=== PATIENT | male | born 1965 | race Hispanic/Latino ===

== ENCOUNTER 2017-02-27 09:37 | Observation (INO) | payer MEDICAID ==
[~2017-02-27] VITALS: Ht 172.7 cm; Wt 113.1 kg
[~2017-02-27 09:37] MED LIST: HUM10VIA6 SQ; HYDR-305 PO
[2017-02-27 12:08] VITALS: BP 119/68
[2017-02-27 12:09] LABS: POTASSIUM 4.3 mmol/L (3.5-5.1)
[2017-02-27] MEDS ORDERED: AMYL1CAP63 PO (12:29)
[2017-02-27] MEDS ORDERED: ALBU6.7H IH (12:32)
[2017-02-27] MEDS ORDERED: CHOL50004 PO (12:32)
[2017-02-27] MEDS ORDERED: ICOS1CAP PO (12:32)
[2017-02-27] MEDS ORDERED: INSLAN SQ (12:32)
[2017-02-27] MEDS ORDERED: LISI-613 PO (12:32)
[2017-02-27] MEDS ORDERED: ALPR1TAB2 PO (12:32)
[2017-02-27] MEDS ORDERED: PIOG15TA66 PO (12:32)
[2017-02-27] MEDS ORDERED: CANA300T PO (12:32)
[2017-02-27] MEDS ORDERED: METF10004 PO (12:32)
[2017-02-27] MEDS ORDERED: LINA5TAB PO (12:32)
[2017-02-27] MEDS ORDERED: EXEN10PE3 SQ (12:32)
[2017-02-28] VITALS (25 sets, daily range): BP systolic 101–157; BP diastolic 59–83
[2017-02-28] MEDS ORDERED: CEFAZOLIN 2 GM/50 ML IV ONE (08:52)
[2017-02-28] MEDS ORDERED: SODIUM CHLORIDE 0.9% 1000ML 1,000 ML IV ONE (08:52)
[2017-02-28 09:20] LABS: POTASSIUM 4.7 mmol/L (3.5-5.1)
[2017-02-28] MEDS ORDERED: INSULIN HUMULIN R 100 UNIT/ML 3ML ONE ×3 (09:31→11:36)
[2017-02-28] MEDS ORDERED: INSULIN HUMULIN R 100 UNIT/ML 3ML SQ SCH (09:45)
[2017-02-28] MEDS ORDERED: NEOSTIGMINE METHYLSULFATE 1MG/ML IV ONE (09:55)
[2017-02-28] MEDS ORDERED: LIDOCAINE PF 2% 5ML ABBOJECT ONE (09:55)
[2017-02-28] MEDS ORDERED: ONDANSETRON HCL 4 MG/2 ML VIAL ONE (09:55)
[2017-02-28] MEDS ORDERED: DEXAMETHASONE SOD PHOSPHATE 10MG/ML 1ML VIAL ONE (09:55)
[2017-02-28] MEDS ORDERED: MIDAZOLAM HCL 1 MG/ML 2ML VIAL ONE (09:55)
[2017-02-28] MEDS ORDERED: PROPOFOL 10 MG/ML 20ML VIAL IV ONE (09:55)
[2017-02-28] MEDS ORDERED: FENTANYL CITRATE PF 50 MCG/1 ML 2ML VIAL ONE (09:55)
[2017-02-28] MEDS ORDERED: SUCCINYLCHOLINE 200MG/10ML SYR ONE (09:55)
[2017-02-28] MEDS ORDERED: ROPIVACAINE 0.5% 5MG/ML 30ML IJ ONE (10:01)
[2017-02-28] MEDS ORDERED: MEPERIDINE-PF 25 MG/ML SYG ONE ×2 (12:05→12:18)
[2017-02-28 12:48] LABS: HEMATOCRIT 45.8 % (42-54)
[2017-02-28] MEDS ORDERED: LACTATED RINGERS 1000ML 1,000 ML IV SCH (13:30)
[2017-02-28] MEDS ORDERED: MAGNESIUM HYDROXIDE 30 ML/UDCUP PO PRN (13:30)
[2017-02-28] MEDS ORDERED: BISACODYL 10 MG SUPP.RECT RC PRN (13:30)
[2017-02-28] MEDS ORDERED: CEFAZOLIN 2GM / 50 ML 50 ML IV SCH (13:30)
[2017-02-28] MEDS: MORPHINE SULFATE 10 MG/ML 1ML SYG IM PRN (13:34)
[2017-02-28] MEDS: PROMETHAZINE HCL 25 MG/ML 1ML AMPULE IM PRN (13:41)
[2017-02-28] MEDS: CEFAZOLIN 2GM / 50 ML 50 ML IV SCH ×2 (15:53→23:17)
[2017-02-28] MEDS ORDERED: DEXTROSE 50%-WATER 50 ML DISP.SYRIN IV PRN (16:15)
[2017-02-28] MEDS ORDERED: GLUCAGON 1MG KIT 1 MG ML IM PRN (16:15)
[2017-02-28] MEDS: INSULIN HUMULIN R 100 UNIT/ML 3ML SQ SCH ×2 (16:46→20:28)
[2017-02-28 18:11] LABS: HEMATOCRIT 42.6 % (42-54)
[2017-02-28] MEDS: HYDROCODONE/ACETAMINOPHEN 10/325 MG TAB PO PRN (20:10)
[2017-02-28] MEDS ORDERED: FAMOTIDINE 20MG TAB 20 MG TAB PO ONE (21:05)
[2017-03-01] VITALS: BP 126/79
[2017-03-01] MEDS: MORPHINE SULFATE 10 MG/ML 1ML SYG IM PRN ×2 (00:56→12:33)
[2017-03-01] MEDS: PROMETHAZINE HCL 25 MG/ML 1ML AMPULE IM PRN (00:56)
[2017-03-01 04:00] VITALS: BP 127/75
[2017-03-01 05:52] LABS: HEMATOCRIT 41.7 % (42-54); MEAN CORPUSCULAR HEMOGLOBIN 31.6 pg (27.0-33.0); MEAN CORPUSCULAR HGB CONC 34.5 g/dL (32.0-36.0); MEAN CORPUSCULAR VOLUME 91.5 fL (79-99); PLATELET COUNT (AUTO) 184 K/uL (130-400); RED BLOOD CELL COUNT(AUTO) 4.56 MIL/uL (4.50-6.20); RED CELL DISTRIBUTION WIDTH 13.1 % (11.0-15.5); WHITE BLOOD COUNT (AUTO) 8.2 K/uL (4.8-10.8)
[2017-03-01] MEDS: INSULIN HUMULIN R 100 UNIT/ML 3ML SQ SCH ×2 (06:06→12:15)
[2017-03-01 07:51] VITALS: BP 136/82
[2017-03-01] MEDS ORDERED: INSULIN HUMULIN 70/30 100 UNIT/ML 3ML SQ SCH ×2 (08:00→17:00)
[2017-03-01] MEDS: CEFAZOLIN 2GM / 50 ML 50 ML IV SCH (08:20)
[2017-03-01] MEDS: HYDROCODONE/ACETAMINOPHEN 10/325 MG TAB PO PRN (08:21)
[2017-03-01] MEDS ORDERED: LINAGLIPTIN 5 MG TABLET PO SCH (09:00)
[2017-03-01] MEDS ORDERED: METFORMIN HCL 500 MG TABLET PO SCH (09:00)
[2017-03-01] MEDS ORDERED: LISINOPRIL 20 MG TABLET PO SCH (09:00)
[2017-03-01] MEDS ORDERED: PIOGLITAZONE HCL 15 MG TAB PO SCH (09:00)
[2017-03-02] MEDS ORDERED: INSULIN HUMULIN 70/30 100 UNIT/ML 3ML SQ SCH (08:00)
[2017-03-02] MEDS ORDERED: EXENATIDE 10 MCG SQ SCH (09:00)
[2017-03-02] MEDS ORDERED: CANAGLIFLOZIN 300 MG PO SCH (09:00)
[2017-03-02] MEDS ORDERED: ICOSAPENT ETHYL 1 GM PO SCH (09:00)
[2017-03-02] MEDS ORDERED: CHOLECALCIFEROL 5000 UNIT PO SCH (09:00)
== END 2017-03-01 15:34 | disposition home or self-care (01) ==
LOC: EDSTATUS 12:00 → DAHIP 02-28 06:44 → 4AH 02-28 12:31
DX: M75.101 Unspecified rotator cuff tear or rupture of right shoulder, not specified as traumatic (principal); M75.41 Impingement syndrome of right shoulder; E11.65 Type 2 diabetes mellitus with hyperglycemia; E78.5 Hyperlipidemia, unspecified; I11.9 Hypertensive heart disease without heart failure; J45.909 Unspecified asthma, uncomplicated; F31.9 Bipolar disorder, unspecified; R32 Unspecified urinary incontinence; F41.8 Other specified anxiety disorders; M54.5 Low back pain; G89.29 Other chronic pain; E66.9 Obesity, unspecified; Z79.4 Long term (current) use of insulin
CPT/HCPCS: 23184; 23410; 36415 ×3; 80048 ×3; 82565; 82948 ×7; 85027; 88304; 88311; 96365; 96372 ×2; 96374; 96375; 96376; 97161; A4600; A4930 ×2; A6223; C1713 ×2; G0378 ×34; G8978; G8979; G8980; G8981; G8982; G8983; J0330; J0690 ×4; J1100; J1815 ×8; J2001; J2175 ×2; J2250; J2270 ×3; J2405; J2550; J2704; J2710; J2795; J3010; J7030; J7120

== ENCOUNTER 2017-05-06 23:06 | Inpatient (IN) | payer MEDICAID ==
[~2017-05-06] VITALS: Ht 172.7 cm; Wt 120.7 kg
[~2017-05-06 23:06] MED LIST changes: +ALBU6.7H IH; +ALPR1TAB2 PO; +AMYL1CAP63 PO; +CANA300T PO; +CHOL50004 PO; +EXEN10PE3 SQ; +ICOS1CAP PO; +INSLAN SQ; +LINA5TAB PO; +LISI-613 PO; +METF10004 PO; +PIOG15TA66 PO
[2017-05-07] MEDS ORDERED: SODIUM CHLORIDE 0.9% 1000ML 1,000 ML IV ONE (01:00)
[2017-05-07 01:16] LABS: CREATININE 1.2 mg/dL (0.5-1.5); POTASSIUM 3.8 mmol/L (3.5-5.1)
[2017-05-07 01:19] LABS: BASOPHILS % (AUTO) 0.5 % (0.0-5.0); LYMPHOCYTES % (AUTO) 33.5 % (21.0-51.0); MEAN CORPUSCULAR HEMOGLOBIN 30.5 pg (27.0-33.0); MEAN CORPUSCULAR HGB CONC 33.6 g/dL (32.0-36.0); MEAN CORPUSCULAR VOLUME 90.9 fL (79-99); MONOCYTES % (AUTO) 6.1 % (3.0-13.0); NEUTROPHILS % (AUTO) 57.9 % (40.0-77.0); NUCLEATED RED BLOOD CELLS 0.2 % (0.0-0.19); PLATELET COUNT (AUTO) 198 K/uL (130-400); RED BLOOD CELL COUNT(AUTO) 5.06 MIL/uL (4.50-6.20); RED CELL DISTRIBUTION WIDTH 13.6 % (11.0-15.5); WHITE BLOOD COUNT (AUTO) 9.6 K/uL (4.8-10.8)
[2017-05-07 01:20] LABS: ALBUMIN 3.6 g/dL (3.5-5.0); BILIRUBIN,DIRECT 0.1 mg/dL (0.0-0.3); BILIRUBIN,TOTAL 0.6 mg/dL (0.2-1.0); TOTAL PROTEIN, SERUM 7.8 g/dL (6.0-8.3)
[2017-05-07] MEDS ORDERED: ZOSYN 3.375GM+NS 50ML 50 ML IV ONE (02:06)
[2017-05-07] MEDS ORDERED: VANCOMYCIN 1GM+NS 250ML 250 ML IV ONE (02:06)
[2017-05-07 05:24] VITALS: BP 129/77
[2017-05-07 06:37] LABS: HEMATOCRIT 39.3 % (42-54); MEAN CORPUSCULAR HEMOGLOBIN 31.4 pg (27.0-33.0); MEAN CORPUSCULAR HGB CONC 34.8 g/dL (32.0-36.0); MEAN CORPUSCULAR VOLUME 90.1 fL (79-99); NUCLEATED RED BLOOD CELLS 0.1 % (0.0-0.19); PLATELET COUNT (AUTO) 169 K/uL (130-400); RED BLOOD CELL COUNT(AUTO) 4.36 MIL/uL (4.50-6.20); RED CELL DISTRIBUTION WIDTH 13.7 % (11.0-15.5); WHITE BLOOD COUNT (AUTO) 6.9 K/uL (4.8-10.8)
[2017-05-07 06:57] LABS: ALBUMIN 2.8 g/dL (3.5-5.0); BILIRUBIN,TOTAL 0.5 mg/dL (0.2-1.0); POTASSIUM 3.8 mmol/L (3.5-5.1); TOTAL PROTEIN, SERUM 6.5 g/dL (6.0-8.3)
[2017-05-07 07:00] VITALS: BP 130/76
[2017-05-07] MEDS: 1/2 NORMAL SALINE 1,000 ML IV SCH (07:10)
[2017-05-07] MEDS ORDERED: ALPRAZOLAM 1 MG TAB PO PRN (07:45)
[2017-05-07] MEDS ORDERED: GLUCAGON 1MG KIT 1 MG ML IM PRN (08:00)
[2017-05-07] MEDS ORDERED: INSULIN LISPRO 100 UNIT/ML 3ML SQ SCH (08:00)
[2017-05-07] MEDS ORDERED: DEXTROSE 50%-WATER 50 ML DISP.SYRIN IV PRN (08:00)
[2017-05-07] MEDS: **HM** VASCEPA 1GM PO SCH (09:00)
[2017-05-07] MEDS: BYETTA 10 MCG SQ SCH (09:00)
[2017-05-07] MEDS: INVOKANA 300 MG PO SCH (09:00)
[2017-05-07] MEDS: **HM** VIT D3 5000 UNITS PO SCH (09:00)
[2017-05-07] MEDS: INSULIN GLARGINE 100 UNITS/ML 10 ML VIAL SQ SCH (10:14)
[2017-05-07] MEDS: [UNRECOGNIZED DRUG - OTHER] PO SCH (10:20)
[2017-05-07] MEDS: PIOGLITAZONE HCL 15 MG TAB PO SCH (10:20)
[2017-05-07] MEDS: PIPERACILLIN SODIUM/TAZOBACTAM 3.375 GM VIAL IV SCH ×3 (10:20→20:35)
[2017-05-07] MEDS: HYDROCODONE/ACETAMINOPHEN 10/325 MG TAB PO PRN (10:20)
[2017-05-07] MEDS: LINAGLIPTIN 5 MG TABLET PO SCH (10:20)
[2017-05-07] MEDS: METFORMIN HCL 500 MG TABLET PO SCH (10:21)
[2017-05-07] MEDS: LISINOPRIL 20 MG TABLET PO SCH (10:21)
[2017-05-07 11:00] VITALS: BP 124/75
[2017-05-07] MEDS: ALBUTEROL SULFATE 0.083% 2.5 MG/3 ML INH IH SCH (12:01)
[2017-05-07 15:59] VITALS: BP 126/73
[2017-05-07] MEDS: INSULIN LISPRO 100 UNIT/ML 3ML SQ SCH (18:05)
[2017-05-07 19:59] VITALS: BP 148/80
[2017-05-07 23:53] VITALS: BP 137/85
[2017-05-08] MEDS: HYDROCODONE/ACETAMINOPHEN 10/325 MG TAB PO PRN ×2 (00:21→09:30)
[2017-05-08] MEDS: PIPERACILLIN SODIUM/TAZOBACTAM 3.375 GM VIAL IV SCH (02:02)
[2017-05-08 04:00] VITALS: BP 130/77
[2017-05-08 04:51] LABS: HEMATOCRIT 39.2 % (42-54); MEAN CORPUSCULAR HEMOGLOBIN 31.7 pg (27.0-33.0); MEAN CORPUSCULAR HGB CONC 35.2 g/dL (32.0-36.0); PLATELET COUNT (AUTO) 176 K/uL (130-400); RED BLOOD CELL COUNT(AUTO) 4.35 MIL/uL (4.50-6.20); RED CELL DISTRIBUTION WIDTH 13.4 % (11.0-15.5); WHITE BLOOD COUNT (AUTO) 7.4 K/uL (4.8-10.8)
[2017-05-08] MEDS: 1/2 NORMAL SALINE 1,000 ML IV SCH (05:03)
[2017-05-08 05:10] LABS: CREATININE 1.1 mg/dL (0.5-1.5)
[2017-05-08 05:28] LABS: EOSINOPHILS % (MANUAL) 5 % (1-6); LYMPHOCYTES % (MANUAL) 39 % (22-44); MAN.DIFF COMMENT-IMPRESSION MANUAL DIFFERENTIAL; MONOCYTES % (MANUAL) 5 % (2-9); PLATELET MORPHOLOGY COMMENT ADEQUATE; REACTIVE LYMPHOCYTES 6 % (0-0); SEGMENTED NEUTROPHILS % 45 % (40-70)
[2017-05-08] MEDS: INSULIN LISPRO 100 UNIT/ML 3ML SQ SCH ×2 (06:25→18:33)
[2017-05-08] MEDS ORDERED: INSULIN LISPRO 100 UNIT/ML 3ML SQ SCH (07:30)
[2017-05-08 07:51] VITALS: BP 137/76
[2017-05-08] MEDS ORDERED: VANCOMYCIN PROTOCOL PER PHARMACY IV SCH (09:00)
[2017-05-08] MEDS: BYETTA 10 MCG SQ SCH (09:00)
[2017-05-08] MEDS ORDERED: PHARMACY COMMUNICATION MISC SCH (09:00)
[2017-05-08] MEDS: INVOKANA 300 MG PO SCH (09:00)
[2017-05-08] MEDS: **HM** VASCEPA 1GM PO SCH (09:00)
[2017-05-08] MEDS ORDERED: SILVER SULFADIAZINE CREAM 50 GM TP SCH (09:00)
[2017-05-08] MEDS ORDERED: SILVER SULFADIAZINE CREAM 400 GM TP SCH (09:00)
[2017-05-08] MEDS: **HM** VIT D3 5000 UNITS PO SCH (09:00)
[2017-05-08] MEDS ORDERED: CEFEPIME HCL 1 GM VIAL IVP SCH (09:30)
[2017-05-08] MEDS: METFORMIN HCL 500 MG TABLET PO SCH (09:31)
[2017-05-08] MEDS: PIOGLITAZONE HCL 15 MG TAB PO SCH (09:32)
[2017-05-08] MEDS: [UNRECOGNIZED DRUG - OTHER] PO SCH (09:32)
[2017-05-08] MEDS: LISINOPRIL 20 MG TABLET PO SCH (09:32)
[2017-05-08] MEDS: LINAGLIPTIN 5 MG TABLET PO SCH (09:32)
[2017-05-08] MEDS: INSULIN GLARGINE 100 UNITS/ML 10 ML VIAL SQ SCH (09:53)
[2017-05-08] MEDS ORDERED: COMPOUND IV REFRIGERATED 1 EACH IVSOLN MISC PRN (10:15)
[2017-05-08 11:23] VITALS: BP 128/64
[2017-05-08] MEDS: ALBUTEROL SULFATE 0.083% 2.5 MG/3 ML INH IH SCH ×2 (12:15→18:21)
[2017-05-08] MEDS ORDERED: MEROPENEM 1 GM VIAL IVP SCH (14:00)
[2017-05-08 15:12] LABS: INR 0.92 (0.85-1.15); PARTIAL THROMBOPLASTIN TIME 30.2 SEC (26.3-35.5); PROTHROMBIN TIME 9.7 SEC (9.6-11.6)
[2017-05-08 16:19] VITALS: BP 128/85
[2017-05-08 19:35] VITALS: BP 130/73
[2017-05-08] MEDS ORDERED: VANCOMYCIN 1.75 GM in SODIUM CHLORIDE 0.9% 250 ML IV SCH (21:00)
== END 2017-05-08 20:45 | disposition home or self-care (01) | DRG 344 ==
LOC: EDH 23:06 → EDHIP 23:07 → OBSVTOIN 23:07 → 3AH 05-07 04:47
PROVIDERS: ADMIT Internal Medicine; ATTEND Internal Medicine
PROC: 05H633Z Insertion of Infusion Device into Left Subclavian Vein, Percutaneous Approach (ICD-10-PCS; principal; 2017-05-08)
DX: E11.69 Type 2 diabetes mellitus with other specified complication (principal); M86.8X7 Other osteomyelitis, ankle and foot; E11.65 Type 2 diabetes mellitus with hyperglycemia; L03.115 Cellulitis of right lower limb; D64.9 Anemia, unspecified; E78.5 Hyperlipidemia, unspecified; I10 Essential (primary) hypertension; L60.0 Ingrowing nail; F41.9 Anxiety disorder, unspecified
CPT/HCPCS: 36415; 71045; 73630; 73718; 80048; 80053; 80076; 82948; 83605; 85025; 85027; 85610; 85730; 87040; 87070; 93926; 94640; 94664; A4218; C1894; J0692; J2543; J3370; J7030

== ENCOUNTER 2017-07-09 09:45 | Emergency (ER) | payer MEDICAID ==
[~2017-07-09 09:45] MED LIST changes: -HUM10VIA6 SQ
[2017-07-09] MEDS ORDERED: ASPIRIN 325 MG TABLET ONE (10:36)
[2017-07-09 10:50] LABS: BASOPHILS % (AUTO) 1.2 % (0.0-5.0); EOSINOPHILS % (AUTO) 3.4 % (0.0-8.0); HEMATOCRIT 45.7 % (42-54); LYMPHOCYTES % (AUTO) 28.3 % (21.0-51.0); MEAN CORPUSCULAR HEMOGLOBIN 31.4 pg (27.0-33.0); MEAN CORPUSCULAR HGB CONC 34.9 g/dL (32.0-36.0); MEAN CORPUSCULAR VOLUME 90.2 fL (79-99); MONOCYTES % (AUTO) 6.8 % (3.0-13.0); NEUTROPHILS % (AUTO) 60.3 % (40.0-77.0); PLATELET COUNT (AUTO) 224 K/uL (130-400); RED BLOOD CELL COUNT(AUTO) 5.07 MIL/uL (4.50-6.20); RED CELL DISTRIBUTION WIDTH 13.6 % (11.0-15.5); WHITE BLOOD COUNT (AUTO) 5.7 K/uL (4.8-10.8)
[2017-07-09 11:01] LABS: PARTIAL THROMBOPLASTIN TIME 27.8 SEC (26.3-35.5)
[2017-07-09 11:28] LABS: INR 0.93 (0.85-1.15); PROTHROMBIN TIME 9.8 SEC (9.6-11.6)
[2017-07-09 12:07] LABS: ALBUMIN 3.5 g/dL (3.5-5.0); BILIRUBIN,TOTAL 0.7 mg/dL (0.2-1.0); CREATINE KINASE MB 0.8 ng/mL (0.5-3.6); CREATININE 1.4 mg/dL (0.5-1.5); POTASSIUM 5.2 mmol/L (3.5-5.1); TOTAL PROTEIN, SERUM 7.5 g/dL (6.0-8.3)
[2017-07-09] MEDS ORDERED: INSULIN HUMULIN R 100 UNIT/ML 3ML ONE (12:49)
== END 2017-07-09 13:13 | disposition home or self-care (01) ==
LOC: EDH 09:45
DX: E11.65 Type 2 diabetes mellitus with hyperglycemia (principal); R06.00 Dyspnea, unspecified; E78.5 Hyperlipidemia, unspecified; I10 Essential (primary) hypertension
CPT/HCPCS: 36415; 71045; 80053; 82550; 82553; 82948; 83874; 84484; 85025; 85378; 85610; 85730; 93005; 94761; 96361; 96374; 99285; J1815

== ENCOUNTER 2017-10-10 15:22 | Emergency (ER) | payer MEDICAID ==
[2017-10-10] MEDS ORDERED: KETOROLAC TROMETHAMINE 30MG/ML ONE (17:18)
[2017-10-10 17:22] LABS: BASOPHILS % (AUTO) 0.9 % (0.0-5.0); EOSINOPHILS % (AUTO) 2.6 % (0.0-8.0); HEMATOCRIT 46.1 % (42-54); MEAN CORPUSCULAR HEMOGLOBIN 32.4 pg (27.0-33.0); MEAN CORPUSCULAR HGB CONC 35.7 g/dL (32.0-36.0); MEAN CORPUSCULAR VOLUME 90.8 fL (79-99); MONOCYTES % (AUTO) 5.8 % (3.0-13.0); NEUTROPHILS % (AUTO) 50.7 % (40.0-77.0); NUCLEATED RED BLOOD CELLS 0.2 % (0.0-0.19); PLATELET COUNT (AUTO) 245 K/uL (130-400); RED BLOOD CELL COUNT(AUTO) 5.08 MIL/uL (4.50-6.20); RED CELL DISTRIBUTION WIDTH 13.7 % (11.0-15.5); WHITE BLOOD COUNT (AUTO) 7.7 K/uL (4.8-10.8)
[2017-10-10 17:26] LABS: APPEARANCE,URINE Clear (CLEAR); BILIRUBIN,URINE Negative (NEGATIVE); COLOR,URINE Yellow (YELLOW); GLUCOSE, URINE (UA) >=1000 mg/dL (NEGATIVE); KETONES,URINE Negative (NEGATIVE); LEUKOCYTE ESTERASE ,URINE Negative (NEGATIVE); NITRATE,URINE Negative (NEGATIVE); OCCULT BLOOD,URINE Negative (NEGATIVE); PROTEIN,URINE Negative (NEGATIVE); UROBILINOGEN,URINE 0.2 mg/dL (0.2-1.0)
[2017-10-10 17:39] LABS: BACTERIA,URINE Few /HPF (None Seen); RBC,URINE None Seen /HPF (0-1); SQUAMOUS EPITHELIAL CELL,UR 0-2 /HPF (0-2); WBC,URINE 0-1 /HPF (0-1)
[2017-10-10 18:28] LABS: ERYTHROCYTE SEDIMENTATION RATE 4 MM/HR (0-20)
[2017-10-10] MEDS ORDERED: METHYLPREDNISOLONE SOD SUCC 125MG/2ML VIAL ONE (19:06)
== END 2017-10-10 19:31 | disposition home or self-care (01) ==
LOC: EDH 15:22
DX: R53.1 Weakness (principal); M06.80 Other specified rheumatoid arthritis, unspecified site; R06.02 Shortness of breath; R10.32 Left lower quadrant pain; E11.9 Type 2 diabetes mellitus without complications; I10 Essential (primary) hypertension; E78.5 Hyperlipidemia, unspecified; Z98.890 Other specified postprocedural states
CPT/HCPCS: 36415; 81001; 82948; 85025; 85651; 86141; 96374; 96375; 99284; J1885; J2930

== ENCOUNTER 2017-10-18 21:46 | Observation (INO) | payer MEDICAID ==
[~2017-10-18] VITALS: Ht 172.7 cm; Wt 119.7 kg
[2017-10-18] MEDS ORDERED: SODIUM CHLORIDE 0.9% 1000ML 1,000 ML IV ONE (22:27)
[2017-10-18 22:31] LABS: BASOPHILS % (AUTO) 0.8 % (0.0-5.0); EOSINOPHILS % (AUTO) 2.4 % (0.0-8.0); HEMATOCRIT 42.6 % (42-54); LYMPHOCYTES % (AUTO) 44.3 % (21.0-51.0); MEAN CORPUSCULAR HEMOGLOBIN 32.6 pg (27.0-33.0); MEAN CORPUSCULAR HGB CONC 35.8 g/dL (32.0-36.0); MONOCYTES % (AUTO) 7.3 % (3.0-13.0); NEUTROPHILS % (AUTO) 45.2 % (40.0-77.0); NUCLEATED RED BLOOD CELLS 0.1 % (0.0-0.19); PLATELET COUNT (AUTO) 209 K/uL (130-400); RED BLOOD CELL COUNT(AUTO) 4.68 MIL/uL (4.50-6.20); RED CELL DISTRIBUTION WIDTH 13.4 % (11.0-15.5); WHITE BLOOD COUNT (AUTO) 8.2 K/uL (4.8-10.8)
[2017-10-18 22:47] LABS: ALBUMIN 3.3 g/dL (3.5-5.0); BILIRUBIN,TOTAL 0.7 mg/dL (0.2-1.0); CREATINE KINASE MB 0.8 ng/mL (0.5-3.6); CREATININE 1.6 mg/dL (0.5-1.5); POTASSIUM 3.8 mmol/L (3.5-5.1)
[2017-10-18] MEDS ORDERED: INSULIN HUMULIN R 100 UNIT/ML 3ML ONE ×2 (23:10)
[2017-10-18 23:50] LABS: APPEARANCE,URINE Clear (CLEAR); BILIRUBIN,URINE Negative (NEGATIVE); COLOR,URINE Yellow (YELLOW); GLUCOSE, URINE (UA) >=1000 mg/dL (NEGATIVE); KETONES,URINE Negative (NEGATIVE); LEUKOCYTE ESTERASE ,URINE Negative (NEGATIVE); NITRATE,URINE Negative (NEGATIVE); OCCULT BLOOD,URINE Nonhemolyzed Trace (NEGATIVE); PROTEIN,URINE Negative (NEGATIVE); UROBILINOGEN,URINE 0.2 mg/dL (0.2-1.0)
[2017-10-19 00:01] LABS: BACTERIA,URINE Rare /HPF (None Seen); RBC,URINE 0-1 /HPF (0-1); WBC,URINE 0-1 /HPF (0-1)
[2017-10-19] MEDS ORDERED: CEFTRIAXONE SODIUM 1 GM ONE (01:03)
[2017-10-19] MEDS ORDERED: 1/2 NORMAL SALINE 1,000 ML IV ONE ×2 (01:07)
[2017-10-19 02:00] VITALS: BP 128/66
[2017-10-19] MEDS ORDERED: 1/2 NORMAL SALINE 1,000 ML IV SCH (02:00)
[2017-10-19] MEDS ORDERED: CEFTRIAXONE SODIUM 1 GM IVP SCH (02:00)
[2017-10-19 03:40] VITALS: BP 121/71
[2017-10-19 04:20] LABS: HEMATOCRIT 39.6 % (42-54); MEAN CORPUSCULAR HEMOGLOBIN 32.8 pg (27.0-33.0); PLATELET COUNT (AUTO) 181 K/uL (130-400); RED BLOOD CELL COUNT(AUTO) 4.34 MIL/uL (4.50-6.20); RED CELL DISTRIBUTION WIDTH 13.6 % (11.0-15.5); WHITE BLOOD COUNT (AUTO) 7.3 K/uL (4.8-10.8)
[2017-10-19 04:31] LABS: CREATININE 1.2 mg/dL (0.5-1.5); POTASSIUM 3.6 mmol/L (3.5-5.1)
[2017-10-19 07:11] VITALS: BP 128/73
[2017-10-19 11:00] VITALS: BP 142/82
== END 2017-10-19 12:55 | disposition home or self-care (01) ==
LOC: EDH 21:46 → EDHIP 21:47 → 3DH 10-19 02:00
PROVIDERS: ADMIT Internal Medicine; ATTEND Internal Medicine
DX: A41.9 Sepsis, unspecified organism (principal); E11.9 Type 2 diabetes mellitus without complications; E78.5 Hyperlipidemia, unspecified; I10 Essential (primary) hypertension; R63.1 Polydipsia; G89.29 Other chronic pain; M54.9 Dorsalgia, unspecified
CPT/HCPCS: 36415 ×2; 80048; 80053; 81001; 82550; 82553; 82948 ×2; 83605 ×2; 83880; 84484; 85025; 85027; 87040 ×2; 93005; 99285; G0378 ×15; J0696; J1815 ×2; J7030

== ENCOUNTER 2018-03-19 09:39 | Emergency (ER) | payer MEDICAID ==
[~2018-03-19 09:39] MED LIST changes: -HYDR-305 PO; +HYDR-4453 PO; +METF-446 PO; -METF10004 PO
[2018-03-19 10:07] LABS: BASOPHILS % (AUTO) 0.7 % (0.0-5.0); EOSINOPHILS % (AUTO) 2.7 % (0.0-8.0); HEMATOCRIT 47.2 % (42-54); LYMPHOCYTES % (AUTO) 33.1 % (21.0-51.0); MEAN CORPUSCULAR HEMOGLOBIN 31.3 pg (27.0-33.0); MEAN CORPUSCULAR HGB CONC 33.9 g/dL (32.0-36.0); MEAN CORPUSCULAR VOLUME 92.3 fL (79-99); MONOCYTES % (AUTO) 6.7 % (3.0-13.0); NEUTROPHILS % (AUTO) 56.8 % (40.0-77.0); NUCLEATED RED BLOOD CELLS 0.2 % (0.0-0.19); PLATELET COUNT (AUTO) 186 K/uL (130-400); RED BLOOD CELL COUNT(AUTO) 5.12 MIL/uL (4.50-6.20); RED CELL DISTRIBUTION WIDTH 13.7 % (11.0-15.5); WHITE BLOOD COUNT (AUTO) 7.4 K/uL (4.8-10.8)
[2018-03-19 10:12] LABS: CREATININE 1.1 mg/dL (0.5-1.5); POTASSIUM 4.5 mmol/L (3.5-5.1)
[2018-03-19 10:17] LABS: ALBUMIN 3.5 g/dL (3.5-5.0); BILIRUBIN,TOTAL 0.7 mg/dL (0.2-1.0); TOTAL PROTEIN, SERUM 7.7 g/dL (6.0-8.3)
[2018-03-19 10:42] LABS: INR 0.93 (0.85-1.15); PROTHROMBIN TIME 9.8 SEC (9.6-11.6)
== END 2018-03-19 10:47 | disposition home or self-care (01) ==
LOC: EEVIPCON 09:39 → EDH 09:39
DX: R07.89 Other chest pain (principal); E11.9 Type 2 diabetes mellitus without complications; E78.5 Hyperlipidemia, unspecified; I10 Essential (primary) hypertension; Z79.4 Long term (current) use of insulin
CPT/HCPCS: 36415; 71045; 80053; 82550; 84484; 85025; 85610; 85730; 93005

== ENCOUNTER 2018-07-24 11:28 | Emergency (ER) | payer MEDICAID ==
[2018-07-24 12:05] LABS: BASOPHILS % (AUTO) 0.7 % (0.0-5.0); EOSINOPHILS % (AUTO) 2.7 % (0.0-8.0); HEMATOCRIT 44.8 % (42-54); LYMPHOCYTES % (AUTO) 34.4 % (21.0-51.0); MEAN CORPUSCULAR HEMOGLOBIN 31.4 pg (27.0-33.0); MEAN CORPUSCULAR HGB CONC 34.4 g/dL (32.0-36.0); MEAN CORPUSCULAR VOLUME 91.3 fL (79-99); MONOCYTES % (AUTO) 5.6 % (3.0-13.0); NEUTROPHILS % (AUTO) 56.6 % (40.0-77.0); PLATELET COUNT (AUTO) 173 K/uL (130-400); RED CELL DISTRIBUTION WIDTH 13.5 % (11.0-15.5); WHITE BLOOD COUNT (AUTO) 5.7 K/uL (4.8-10.8)
[2018-07-24 12:06] LABS: APPEARANCE,URINE Clear (CLEAR); BILIRUBIN,URINE Negative (NEGATIVE); COLOR,URINE Yellow (YELLOW); GLUCOSE, URINE (UA) >=1000 mg/dL (NEGATIVE); KETONES,URINE Negative (NEGATIVE); LEUKOCYTE ESTERASE ,URINE Negative (NEGATIVE); NITRATE,URINE Negative (NEGATIVE); OCCULT BLOOD,URINE Negative (NEGATIVE); PROTEIN,URINE Negative (NEGATIVE); UROBILINOGEN,URINE 0.2 mg/dL (0.2-1.0)
[2018-07-24 12:18] LABS: POTASSIUM 4.2 mmol/L (3.5-5.1)
[2018-07-24 12:22] LABS: ALBUMIN 3.6 g/dL (3.5-5.0); BILIRUBIN,DIRECT 0.1 mg/dL (0.0-0.3); BILIRUBIN,TOTAL 0.4 mg/dL (0.2-1.0); TOTAL PROTEIN, SERUM 7.7 g/dL (6.0-8.3)
[2018-07-24 12:32] LABS: B-TYPE NATRIURETIC PEPTIDE 13 pg/mL (0-100)
[2018-07-24] MEDS ORDERED: IPRATROPIUM/ALBUTEROL SULFATE 3 ML SOLUTION IH ONE (12:51)
[2018-07-24 13:20] LABS: BACTERIA,URINE Rare /HPF (None Seen); MUCUS,URINE Few LPF (None Seen); RBC,URINE 0-1 /HPF (0-1); SQUAMOUS EPITHELIAL CELL,UR Rare /HPF (0-2); WBC,URINE 0-1 /HPF (0-1)
== END 2018-07-24 13:52 | disposition home or self-care (01) ==
LOC: EDH 11:28
DX: J45.901 Unspecified asthma with (acute) exacerbation (principal); R10.12 Left upper quadrant pain; R06.02 Shortness of breath; F41.9 Anxiety disorder, unspecified; E11.9 Type 2 diabetes mellitus without complications; E78.5 Hyperlipidemia, unspecified; I10 Essential (primary) hypertension; Z79.4 Long term (current) use of insulin
CPT/HCPCS: 36415; 71045; 80048; 80076; 81001; 82550; 83690; 83880; 84484; 85025; 93005; 94640

== ENCOUNTER → 2019-01-21 | Outpatient (CLI) | payer MEDICAID ==
[~2019-01-21] MED LIST changes: -ALBU6.7H IH; +ALBU6.7H9 IH
== END | disposition home or self-care (01) ==
LOC: RAH 07:47
PROVIDERS: ATTEND Family Medicine
DX: K21.9 Gastro-esophageal reflux disease without esophagitis (principal); K31.84 Gastroparesis
CPT/HCPCS: 74240

== ENCOUNTER → 2019-03-26 | Outpatient (CLI) | payer MEDICAID ==
[~2019-03-26] MED LIST changes: +HONEY 1 APPL/ML TUBE TP ONE
[2019-03-26 13:04] VITALS: BP 137/82
== END | disposition home or self-care (01) ==
LOC: WHH 08:55
PROVIDERS: ATTEND Surgery
DX: E11.621 Type 2 diabetes mellitus with foot ulcer (principal); L97.512 Non-pressure chronic ulcer of other part of right foot with fat layer exposed; E11.43 Type 2 diabetes mellitus with diabetic autonomic (poly)neuropathy; I10 Essential (primary) hypertension; K21.9 Gastro-esophageal reflux disease without esophagitis; J44.9 Chronic obstructive pulmonary disease, unspecified; Z79.4 Long term (current) use of insulin
CPT/HCPCS: 11042; 97597

== ENCOUNTER → 2019-03-31 | Outpatient (CLI) | payer MEDICAID ==
[~2019-03-31] MED LIST changes: -HONEY 1 APPL/ML TUBE TP ONE
== END | disposition home or self-care (01) ==
LOC: WHH 10:30
PROVIDERS: ATTEND Surgery
DX: E11.621 Type 2 diabetes mellitus with foot ulcer (principal); L97.512 Non-pressure chronic ulcer of other part of right foot with fat layer exposed; E11.43 Type 2 diabetes mellitus with diabetic autonomic (poly)neuropathy; I10 Essential (primary) hypertension; K21.9 Gastro-esophageal reflux disease without esophagitis; J44.9 Chronic obstructive pulmonary disease, unspecified; Z79.4 Long term (current) use of insulin
CPT/HCPCS: 93923; 99211

== ENCOUNTER → 2019-04-03 | Outpatient (CLI) | payer MEDICAID ==
[2019-04-03 11:36] VITALS: BP 105/51
== END | disposition home or self-care (01) ==
LOC: WHH 09:00
PROVIDERS: ATTEND Surgery
DX: E11.621 Type 2 diabetes mellitus with foot ulcer (principal); L97.512 Non-pressure chronic ulcer of other part of right foot with fat layer exposed; E11.43 Type 2 diabetes mellitus with diabetic autonomic (poly)neuropathy; I10 Essential (primary) hypertension; K21.9 Gastro-esophageal reflux disease without esophagitis; J44.9 Chronic obstructive pulmonary disease, unspecified; Z79.4 Long term (current) use of insulin
CPT/HCPCS: 11042; L3260

== ENCOUNTER → 2019-04-10 | Outpatient (CLI) | payer MEDICAID ==
[~2019-04-10] MED LIST changes: +HONEY 1 APPL/ML TUBE TP ONE; +LIDOCAINE HCL 2% JELLY 5 ML TP ONE
[2019-04-10 11:22] VITALS: BP 159/71
== END | disposition home or self-care (01) ==
LOC: WHH 09:00
PROVIDERS: ATTEND Surgery
DX: E11.621 Type 2 diabetes mellitus with foot ulcer (principal); L97.512 Non-pressure chronic ulcer of other part of right foot with fat layer exposed; E11.43 Type 2 diabetes mellitus with diabetic autonomic (poly)neuropathy; I10 Essential (primary) hypertension; K21.9 Gastro-esophageal reflux disease without esophagitis; J44.9 Chronic obstructive pulmonary disease, unspecified; Z79.4 Long term (current) use of insulin
CPT/HCPCS: 11042

== ENCOUNTER → 2019-04-23 | Outpatient (CLI) | payer MEDICAID ==
[~2019-04-23] MED LIST changes: -LIDOCAINE HCL 2% JELLY 5 ML TP ONE; +LIDOCAINE/PRILOCAINE CREAM 5GM TUBE TP ONE
[2019-04-23 11:28] VITALS: BP 162/79
== END | disposition home or self-care (01) ==
LOC: WHH 09:00
PROVIDERS: ATTEND Surgery
DX: E11.621 Type 2 diabetes mellitus with foot ulcer (principal); L97.511 Non-pressure chronic ulcer of other part of right foot limited to breakdown of skin; E11.43 Type 2 diabetes mellitus with diabetic autonomic (poly)neuropathy; I10 Essential (primary) hypertension; K21.9 Gastro-esophageal reflux disease without esophagitis; J44.9 Chronic obstructive pulmonary disease, unspecified; Z79.4 Long term (current) use of insulin
CPT/HCPCS: 99211; J3490

== ENCOUNTER → 2019-04-30 | Outpatient (CLI) | payer MEDICAID ==
[~2019-04-30] MED LIST changes: -HONEY 1 APPL/ML TUBE TP ONE; -LIDOCAINE/PRILOCAINE CREAM 5GM TUBE TP ONE
[2019-04-30 14:09] VITALS: BP 118/68
== END | disposition home or self-care (01) ==
LOC: WHH 09:00
PROVIDERS: ATTEND Surgery
DX: E11.621 Type 2 diabetes mellitus with foot ulcer (principal); L97.511 Non-pressure chronic ulcer of other part of right foot limited to breakdown of skin; E11.43 Type 2 diabetes mellitus with diabetic autonomic (poly)neuropathy; I10 Essential (primary) hypertension; J44.9 Chronic obstructive pulmonary disease, unspecified; K21.9 Gastro-esophageal reflux disease without esophagitis; Z79.4 Long term (current) use of insulin
CPT/HCPCS: 11042

== ENCOUNTER → 2019-05-14 | Outpatient (CLI) | payer MEDICAID ==
[~2019-05-14] MED LIST changes: +LIDOCAINE/PRILOCAINE CREAM 5GM TUBE TP ONE
[2019-05-14 13:12] VITALS: BP 114/68
== END | disposition home or self-care (01) ==
LOC: WHH 08:45
PROVIDERS: ATTEND Surgery
DX: E11.621 Type 2 diabetes mellitus with foot ulcer (principal); L97.512 Non-pressure chronic ulcer of other part of right foot with fat layer exposed; E11.43 Type 2 diabetes mellitus with diabetic autonomic (poly)neuropathy; I10 Essential (primary) hypertension; J44.9 Chronic obstructive pulmonary disease, unspecified; K21.9 Gastro-esophageal reflux disease without esophagitis; Z79.4 Long term (current) use of insulin; Z98.890 Other specified postprocedural states
CPT/HCPCS: 11042; J3490; 97597

== ENCOUNTER 2019-06-04 08:30 | Outpatient (CLI) | payer MEDICAID ==
[~2019-06-04 08:30] MED LIST changes: -LIDOCAINE/PRILOCAINE CREAM 5GM TUBE TP ONE
[2019-06-04 15:35] VITALS: BP 107/65
== END 2019-06-04 16:40 | disposition home or self-care (01) ==
LOC: WHH 08:30
PROVIDERS: ATTEND Surgery
DX: E11.621 Type 2 diabetes mellitus with foot ulcer (principal); L97.518 Non-pressure chronic ulcer of other part of right foot with other specified severity; E11.43 Type 2 diabetes mellitus with diabetic autonomic (poly)neuropathy; I10 Essential (primary) hypertension; K21.9 Gastro-esophageal reflux disease without esophagitis; J44.9 Chronic obstructive pulmonary disease, unspecified; Z79.4 Long term (current) use of insulin; Z98.890 Other specified postprocedural states
CPT/HCPCS: 99214

== ENCOUNTER 2019-10-12 12:32 | Inpatient (IN) | payer MEDICAID ==
[~2019-10-12] VITALS: Ht 172.7 cm; Wt 110.4 kg
[2019-10-12 13:33] LABS: BASOPHILS % (AUTO) 0.6 % (0.0-5.0); EOSINOPHILS % (AUTO) 1.6 % (0.0-8.0); HEMATOCRIT 37.7 % (42-54); LYMPHOCYTES % (AUTO) 28.4 % (21.0-51.0); MEAN CORPUSCULAR HEMOGLOBIN 30.5 pg (27.0-33.0); MEAN CORPUSCULAR HGB CONC 33.2 g/dL (32.0-36.0); NEUTROPHILS % (AUTO) 62.3 % (40.0-77.0); PLATELET COUNT (AUTO) 227 K/uL (130-400); RED CELL DISTRIBUTION WIDTH 14.9 % (11.0-15.5); WHITE BLOOD COUNT (AUTO) 6.7 K/uL (4.8-10.8)
[2019-10-12 13:54] LABS: CREATININE 1.1 mg/dL (0.5-1.5); POTASSIUM 4.2 mmol/L (3.5-5.1)
[2019-10-12 13:58] LABS: ALBUMIN 2.7 g/dL (3.5-5.0); BILIRUBIN,TOTAL 0.7 mg/dL (0.2-1.0); TOTAL PROTEIN, SERUM 7.4 g/dL (6.0-8.3)
[2019-10-12] MEDS ORDERED: MORPHINE SULFATE 4 MG/1ML SYG IV PRN (16:15)
[2019-10-12] MEDS ORDERED: VANCOMYCIN PROTOCOL PER PHARMACY IV PRN (16:15)
[2019-10-12] MEDS ORDERED: POTASSIUM CHLORIDE 10% ELIXIR 20 MEQ/15 ML UDCUP PO PRN (16:15)
[2019-10-12] MEDS ORDERED: GUAIFENESIN-DM 200/20 MG 10 ML PO PRN (16:15)
[2019-10-12] MEDS ORDERED: ACETAMINOPHEN 325 MG TAB PO PRN ×2 (16:15)
[2019-10-12] MEDS ORDERED: NITROGLYCERIN 0.4 MG SL TAB SL PRN (16:15)
[2019-10-12] MEDS ORDERED: ZOLPIDEM TARTRATE 5 MG TAB PO PRN (16:15)
[2019-10-12] MEDS ORDERED: DIPHENHYDRAMINE HCL 25 MG CAPSULE PO PRN (16:15)
[2019-10-12] MEDS ORDERED: LACTULOSE 20 GM/30 ML UDCUP PO PRN (16:15)
[2019-10-12] MEDS ORDERED: ONDANSETRON HCL 4 MG/2 ML VIAL IV PRN (16:15)
[2019-10-12] MEDS ORDERED: MAG HYDROX/AL HYDROX/SIMETH ES 30 ML SUSP UDCUP PO PRN (16:15)
[2019-10-12] MEDS ORDERED: MAGNESIUM 2GM PREMIX 50ML 50 ML IV PRN (16:15)
[2019-10-12] MEDS ORDERED: DiphenhydrAMINE HCL 50 MG/ML VIAL IV PRN (16:15)
[2019-10-12] MEDS ORDERED: HYDRALAZINE HCL 20 MG/ML VIAL IV PRN (16:15)
[2019-10-12] MEDS ORDERED: LIDOCAINE HCL-MPF 1% 2ML VIAL IV PRN (16:15)
[2019-10-12] MEDS ORDERED: POTASSIUM CHLORIDE 20 MEQ ERTAB PO PRN (16:15)
[2019-10-12] MEDS ORDERED: POTASSIUM CHLORIDE 20MEQ/100ML 100 ML IV PRN (16:15)
[2019-10-12] MEDS: INSULIN HUMULIN R 100 UNIT/ML 3ML SQ SCH ×2 (16:30→21:00)
[2019-10-12] MEDS ORDERED: VANCOMYCIN 2 GM in SODIUM CHLORIDE 0.9% 500ML 500 ML IV ONE (18:30)
[2019-10-12] MEDS: ZOSYN 3.375GM+NS 50ML 50 ML IV SCH (21:00)
[2019-10-12] MEDS: INSULIN GLARGINE 100 UNITS/ML 10 ML VIAL SQ SCH (21:00)
[2019-10-12] MEDS: FAMOTIDINE 20MG TAB 20 MG TAB PO SCH (21:00)
[2019-10-12] MEDS ORDERED: FAMOTIDINE 20MG TAB 20 MG TAB ONE (21:05)
[2019-10-12] MEDS ORDERED: ZOSYN 3.375GM+NS 50ML 50 ML IV ONE (21:05)
[2019-10-13] VITALS (30 sets, daily range): BP systolic 96–147; BP diastolic 47–89
[2019-10-13] MEDS: MORPHINE SULFATE 2 MG/ML 1ML SYG IV PRN (01:36)
--- NOTE | 2019-10-13 01:42 | NUR ---
Patient arrived to the floor at 0020 with Vancomycin infusing through Saline lock to RAC. The Zosyn, Pepcid, Lantus had already been administered by ER nurse.
[2019-10-13] MEDS: ZOSYN 3.375GM+NS 50ML 50 ML IV SCH ×3 (04:07→21:19)
[2019-10-13 05:23] LABS: BASOPHILS % (AUTO) 0.8 % (0.0-5.0); LYMPHOCYTES % (AUTO) 33.4 % (21.0-51.0); MEAN CORPUSCULAR HEMOGLOBIN 30.3 pg (27.0-33.0); MEAN CORPUSCULAR HGB CONC 32.6 g/dL (32.0-36.0); MEAN CORPUSCULAR VOLUME 93.1 fL (79-99); MONOCYTES % (AUTO) 7.6 % (3.0-13.0); PLATELET COUNT (AUTO) 196 K/uL (130-400); RED BLOOD CELL COUNT(AUTO) 3.76 MIL/uL (4.50-6.20); RED CELL DISTRIBUTION WIDTH 15.2 % (11.0-15.5); WHITE BLOOD COUNT (AUTO) 5.9 K/uL (4.8-10.8)
[2019-10-13 05:41] LABS: ALBUMIN 2.5 g/dL (3.5-5.0); BILIRUBIN,TOTAL 0.6 mg/dL (0.2-1.0); CREATININE 1.2 mg/dL (0.5-1.5); CRP QUANTITATIVE 105.2 mg/L (0.00-9.0); MAGNESIUM 1.9 mg/dL (1.80-2.40); POTASSIUM 3.7 mmol/L (3.5-5.1); TOTAL PROTEIN, SERUM 6.7 g/dL (6.0-8.3)
[2019-10-13 05:46] LABS: INR 0.96 (0.85-1.15); PROTHROMBIN TIME 10.4 SEC (9.6-11.6)
[2019-10-13 06:20] LABS: ERYTHROCYTE SEDIMENTATION RATE 60 MM/HR (0-20)
[2019-10-13] MEDS: INSULIN HUMULIN R 100 UNIT/ML 3ML SQ SCH ×4 (06:50→21:00)
[2019-10-13] MEDS: FAMOTIDINE 20MG TAB 20 MG TAB PO SCH ×2 (08:48→21:19)
[2019-10-13] MEDS: ENOXAPARIN SODIUM 40 MG/0.4 ML SYRINGE SQ SCH (08:48)
--- NOTE | 2019-10-13 09:15 | NUR ---
MRI PT LEFT TO MRI BY WHEELCHAIR
[2019-10-13] MEDS ORDERED: LIDOCAINE HCL 1% 20 ML VIAL ONE (12:48)
[2019-10-13] MEDS ORDERED: BUPIVACAINE/PF 0.5% 30ML VIAL ONE (12:48)
--- NOTE | 2019-10-13 13:20 | NUR ---
SURG PT TAKEN DOWN FOR SURGERY BY BED WITH MARGARITA RN, PT V/S STABLE
[2019-10-13] MEDS ORDERED: SODIUM CHLORIDE 0.9% 1000ML 1,000 ML IV ONE (13:21)
[2019-10-13] MEDS ORDERED: DEXAMETHASONE SOD PHOSPHATE 10MG/ML 1ML VIAL ONE (13:40)
[2019-10-13] MEDS ORDERED: ONDANSETRON HCL 4 MG/2 ML VIAL ONE (13:41)
[2019-10-13] MEDS ORDERED: MIDAZOLAM HCL 1 MG/ML 2ML VIAL ONE (13:41)
[2019-10-13] MEDS ORDERED: FENTANYL CITRATE PF 50 MCG/1 ML 2ML VIAL ONE (13:41)
[2019-10-13] MEDS ORDERED: LIDOCAINE PF 2% 5ML ABBOJECT ONE (13:41)
[2019-10-13] MEDS ORDERED: PROPOFOL 10 MG/ML 20ML VIAL IV ONE ×2 (13:41→14:28)
[2019-10-13] MEDS ORDERED: EPHEDRINE SULFATE 50 MG/ML AMPULE ONE (14:11)
[2019-10-13] MEDS: VANCOMYCIN 1GM+NS 250ML 250 ML IV SCH (18:26)
--- NOTE | 2019-10-13 18:38 | NUR ---
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 ALSO NEPHLULA LLOYD PROVIDE ASSISTANCE WHEN NEEDED. HAS PROVIDER SERVICE > 30 HRS WEEK PATIENT HAS A SHOWER CHAIR , ROLLING WALKER, AND OXYGEN, STATES WAS ASKING HIS MD FOR A KNEE SCOOTER, THIS CM ADVISED PATIENT HE HAS BAD CIRCULATION, A KNEE SCOOTER IS NOT OPTIMUM FOR HIS FOOT PROBLEM, NEED TO GET FOOT MD'S OPINION-- MAYBE WHEELCHAIR BETTER, CM WILL ASSIST TO OBTAIN IF MD ORDERS,. JAYCE STATES NEEDS OXYGEN- HAS A SLEEP STUDY DONE , BUT NO RESULTS FROM [facility]. PT SATS ARE 99 WITH MASK ON ON ROOM AIR. ADVISED HIM WILL PASS TO HIS RN, JOAQUIN RT CAN CHECK HIS SATS AT NIGHT? PATIENT CURRENTLY WITH WOUND VAC, IV ABX, WITH ANGIOPLASTY FOR AM. PATIENT DOES NOT WANT TO DISCUSS DC PLANNING UNTIL AFTER ANGIOPLASTY. IF NEEDED CAN DO WOUND VAC AT IV ABX AT HOME. Addendum: 10/13/19 at 1845 by MARGAUX HINSON RN CM Amended: Links added.
--- NOTE | 2019-10-13 18:45 | NUR ---
PATIENT'S PREFERENCE FOR DISPOSTION IS HOME WITH HOME HEALTH FOR WOUND VAC AND ABX IF NEEDED. CM TO FOLLOW, DISPO WILL BE AMENDED IF NEEDED BASED ON MD RECOMMENDATIONS Addendum: 10/13/19 at 1846 by MARGAUX HINSON RN CM Amended: Links added.
--- NOTE | 2019-10-13 18:50 | NUR ---
POST SURG PT BACK FROM OR A/A X 3, WOUND VAC IS IN PLACE INTACT, DRESSING DRY AND INTACT, DP TO LEFT FOOT PRESENT, FOOT WARM, V/S STABLE.
--- NOTE | 2019-10-13 19:05 | NUR ---
POST OP X 2 15 MIN PT EATING DINNER, V/S STABLE, LT DP PRESENT DRESSING DRY AND INTACT, WOUND VAC PRESENT, WILL CONTINUE TO MONITOR.
--- NOTE | 2019-10-13 19:20 | NUR ---
POST OP X 3 15 MIN NO CHANGE IN STATUS DP PRESENT, DRESSING DRY AND INTACT WILL CONTINUE TO MONITOR.
--- NOTE | 2019-10-13 19:35 | NUR ---
POST OP X 4 15 MIN PT REST COMFORTABLY IN BED, V/S STABLE DP PRESENT IN LEFT FOOT
--- NOTE | 2019-10-13 20:02 | NUR ---
POST OP 30 MIN V/S STABLE WILL CONTINUE TO MONITOR
[2019-10-13] MEDS: INSULIN GLARGINE 100 UNITS/ML 10 ML VIAL SQ SCH (21:31)
[2019-10-14] VITALS (16 sets, daily range): BP systolic 109–156; BP diastolic 53–87
[2019-10-14] MEDS: MORPHINE SULFATE 2 MG/ML 1ML SYG IV PRN (04:22)
[2019-10-14] MEDS: ZOSYN 3.375GM+NS 50ML 50 ML IV SCH ×3 (04:22→22:09)
[2019-10-14 05:31] LABS: HEMATOCRIT 35.2 % (42-54); MEAN CORPUSCULAR HEMOGLOBIN 30.1 pg (27.0-33.0); MEAN CORPUSCULAR VOLUME 91.2 fL (79-99); RED BLOOD CELL COUNT(AUTO) 3.86 MIL/uL (4.50-6.20); RED CELL DISTRIBUTION WIDTH 14.8 % (11.0-15.5); WHITE BLOOD COUNT (AUTO) 5.9 K/uL (4.8-10.8)
[2019-10-14 05:45] LABS: CREATININE 0.8 mg/dL (0.5-1.5); POTASSIUM 3.9 mmol/L (3.5-5.1)
[2019-10-14] MEDS: INSULIN HUMULIN R 100 UNIT/ML 3ML SQ SCH ×4 (05:46→21:00)
[2019-10-14] MEDS: VANCOMYCIN 1GM+NS 250ML 250 ML IV SCH (06:36)
[2019-10-14] MEDS ORDERED: HYDROMORPHONE HCL 0.5 MG/0.5 ML ML IVP PRN (06:45)
[2019-10-14] MEDS ORDERED: COMPOUND IV REFRIGERATED 1 EACH IVSOLN MISC PRN (07:00)
[2019-10-14 08:26] LABS: CREATINE KINASE, TOTAL 30 U/L (21-232); MYOGLOBIN 34 ng/mL (10-92); TROPONIN I < 0.04 ng/mL (0.00-0.06)
[2019-10-14] MEDS: ENOXAPARIN SODIUM 40 MG/0.4 ML SYRINGE SQ SCH (09:00)
[2019-10-14] MEDS ORDERED: HEPARIN SODIUM 1000UNIT/ML 10ML VIAL ONE (13:13)
[2019-10-14] MEDS ORDERED: SODIUM BICARB 50MEQ 50ML VIAL ONE (13:13)
[2019-10-14] MEDS ORDERED: NITROGLYCERIN 2 MG/VIAL VIAL IV ONE (13:13)
[2019-10-14] MEDS ORDERED: LIDOCAINE HCL 2% 20ML ONE (13:14)
[2019-10-14] MEDS ORDERED: IODIXANOL 320 MG/ML 100 ML VIAL ONE (13:14)
[2019-10-14] MEDS: FAMOTIDINE 20MG TAB 20 MG TAB PO SCH ×2 (13:26→19:35)
[2019-10-14] MEDS ORDERED: FENTANYL CITRATE PF 50 MCG/1 ML 2ML VIAL ONE (13:28)
[2019-10-14] MEDS ORDERED: MIDAZOLAM HCL 1 MG/ML 2ML VIAL ONE (13:28)
[2019-10-14] MEDS ORDERED: SODIUM CHLORIDE 0.9% 1000ML 1,000 ML IV SCH (15:00)
[2019-10-14] MEDS: VANCOMYCIN 1.25 GM in SODIUM CHLORIDE 0.9% 250 ML IV SCH (18:42)
[2019-10-14] MEDS: ACETAMINOPHEN-CODEINE 300/30MG TAB PO PRN (19:35)
[2019-10-14] MEDS: INSULIN GLARGINE 100 UNITS/ML 10 ML VIAL SQ SCH (22:45)
[2019-10-15] MEDS: ACETAMINOPHEN-CODEINE 300/30MG TAB PO PRN (01:35)
[2019-10-15 04:26] VITALS: BP 119/71
[2019-10-15] MEDS: ZOSYN 3.375GM+NS 50ML 50 ML IV SCH ×3 (05:40→21:17)
[2019-10-15] MEDS: VANCOMYCIN 1.25 GM in SODIUM CHLORIDE 0.9% 250 ML IV SCH ×2 (05:40→17:51)
[2019-10-15] MEDS: INSULIN HUMULIN R 100 UNIT/ML 3ML SQ SCH ×4 (05:46→21:00)
[2019-10-15 08:00] VITALS: BP 126/71
[2019-10-15] MEDS: FAMOTIDINE 20MG TAB 20 MG TAB PO SCH ×2 (11:03→21:17)
[2019-10-15] MEDS: ENOXAPARIN SODIUM 40 MG/0.4 ML SYRINGE SQ SCH (11:04)
[2019-10-15 12:00] VITALS: BP 120/65
--- NOTE | 2019-10-15 14:35 | NUR ---
DR. SOSA RECOMMENDING PLACEMENT AT [facility] PATIENT DECLINING PLACEMENT- THIS CMSPOKE TO HIM AT LENGTH STATES HE HAD [facility] AND CAN GET HIS ABX AND WOUND CARE AT HOME SCRIPTS ON CHART FOR WHEELCHAIR, EMS TRANSPORT AND WOUND VAC DR. KENNEDY CONTACTED TO LET HIM KNOW WOUND VAC ORDERS ON ARE CHART FOR [facility] ABX RX AND RX TO HAVE SERVES DONE AT HOME. PATIENT STATES HE WAS GOING TO GET THE ORDERS FOR HIS HOME HEALTH FROM SOMEONE ELSE Addendum: 10/15/19 at 1440 by MARGAUX HINSON RN Amended: Links added.
[2019-10-15 16:00] VITALS: BP 139/78
[2019-10-15 21:08] VITALS: BP 144/78
[2019-10-15] MEDS: INSULIN GLARGINE 100 UNITS/ML 10 ML VIAL SQ SCH (21:18)
[2019-10-16] VITALS (7 sets, daily range): BP systolic 130–149; BP diastolic 74–83
[2019-10-16] MEDS: ZOSYN 3.375GM+NS 50ML 50 ML IV SCH (05:05)
[2019-10-16 05:49] LABS: HEMATOCRIT 32.8 % (42-54); MEAN CORPUSCULAR HEMOGLOBIN 30.1 pg (27.0-33.0); MEAN CORPUSCULAR HGB CONC 32.9 g/dL (32.0-36.0); MEAN CORPUSCULAR VOLUME 91.4 fL (79-99); RED BLOOD CELL COUNT(AUTO) 3.59 MIL/uL (4.50-6.20); RED CELL DISTRIBUTION WIDTH 14.5 % (11.0-15.5); WHITE BLOOD COUNT (AUTO) 5.5 K/uL (4.8-10.8)
[2019-10-16] MEDS: INSULIN HUMULIN R 100 UNIT/ML 3ML SQ SCH ×4 (05:58→20:45)
[2019-10-16] MEDS: FAMOTIDINE 20MG TAB 20 MG TAB PO SCH ×2 (09:15→20:57)
[2019-10-16] MEDS: ENOXAPARIN SODIUM 40 MG/0.4 ML SYRINGE SQ SCH (09:16)
[2019-10-16] MEDS: VANCOMYCIN 1.25 GM in SODIUM CHLORIDE 0.9% 250 ML IV SCH (09:16)
[2019-10-16] MEDS: CEFAZOLIN SODIUM 1 GM VIAL IVP SCH ×2 (12:59→20:57)
--- NOTE | 2019-10-16 15:30 | NUR ---
DISCHARGE PLANNING- VAC AND W/CHAIR AND HH ORDERS FOR WOUND VAC FAXED, ORDERS FOR DME / [facility] FAXED ADVISED PATIENT UNLIKELY TO GET WOUND VAC BEFORE SATURDAY WILL STAY WITH IV ABX UNTIL RECD. STATES DOES NOT NEED EMS HOME, WILL GO BY PRIVATE VEHICLE, CALL TO [facility], CONFIRMED CURRENT PATIENT , WILL SEND INFO, ADVISED HH DID NOT HAVE ORDER FOR HOME HEALTH, JUST FOR REFERRAL TO [facility], THE ORDER FOR HOME HEALTH STILL NEEDS TO BE WRITTEN /SENT WILL FLAG CHART FOR PRIMARY RN Addendum: 10/16/19 at 1749 by MARGAUX HINSON RN CM Amended: Links added.
--- NOTE | 2019-10-16 16:58 | NUR ---
CALL TO [facility]- ADVISED WAS REFAXING REFERRAL WITH [facility], REP STATES [facility] VERY [employer] FAR BEHND WITH DME, EXPECT DELAY IN FILLING ORDER Addendum: 10/16/19 at 1751 by MARGAUX HINSON RN CM Amended: Links added.
[2019-10-16] MEDS ORDERED: VANCOMYCIN 1.5 GM in SODIUM CHLORIDE 0.9% 250 ML IV SCH (18:00)
[2019-10-16] MEDS: INSULIN GLARGINE 100 UNITS/ML 10 ML VIAL SQ SCH (20:45)
[2019-10-16] MEDS: VANCOMYCIN 1.5 GM in SODIUM CHLORIDE 0.9% 250 ML IV SCH (20:58)
[2019-10-17 04:00] VITALS: BP 120/65
[2019-10-17] MEDS: CEFAZOLIN SODIUM 1 GM VIAL IVP SCH ×3 (04:23→21:01)
[2019-10-17 04:47] LABS: HEMATOCRIT 34.9 % (42-54); MEAN CORPUSCULAR HEMOGLOBIN 30.7 pg (27.0-33.0); MEAN CORPUSCULAR HGB CONC 33.2 g/dL (32.0-36.0); MEAN CORPUSCULAR VOLUME 92.3 fL (79-99); RED BLOOD CELL COUNT(AUTO) 3.78 MIL/uL (4.50-6.20); RED CELL DISTRIBUTION WIDTH 14.4 % (11.0-15.5); WHITE BLOOD COUNT (AUTO) 5.2 K/uL (4.8-10.8)
[2019-10-17 05:27] LABS: POTASSIUM 3.7 mmol/L (3.5-5.1)
[2019-10-17] MEDS: INSULIN HUMULIN R 100 UNIT/ML 3ML SQ SCH ×4 (05:43→21:06)
[2019-10-17 08:00] VITALS: BP 166/82
[2019-10-17] MEDS: FAMOTIDINE 20MG TAB 20 MG TAB PO SCH ×2 (09:00→21:10)
[2019-10-17] MEDS: ENOXAPARIN SODIUM 40 MG/0.4 ML SYRINGE SQ SCH (10:56)
[2019-10-17] MEDS: VANCOMYCIN 1.5 GM in SODIUM CHLORIDE 0.9% 250 ML IV SCH ×2 (10:57→21:01)
[2019-10-17 11:00] VITALS: BP 143/76
[2019-10-17 16:00] VITALS: BP 140/72
[2019-10-17] MEDS: INSULIN GLARGINE 100 UNITS/ML 10 ML VIAL SQ SCH (21:07)
[2019-10-18] VITALS (7 sets, daily range): BP systolic 126–146; BP diastolic 63–86
[2019-10-18] MEDS: CEFAZOLIN SODIUM 1 GM VIAL IVP SCH ×3 (04:29→19:57)
[2019-10-18] MEDS: INSULIN HUMULIN R 100 UNIT/ML 3ML SQ SCH ×4 (05:50→20:11)
[2019-10-18] MEDS: FAMOTIDINE 20MG TAB 20 MG TAB PO SCH ×2 (08:54→19:57)
[2019-10-18] MEDS: ENOXAPARIN SODIUM 40 MG/0.4 ML SYRINGE SQ SCH (08:55)
[2019-10-18] MEDS: VANCOMYCIN 1.5 GM in SODIUM CHLORIDE 0.9% 250 ML IV SCH ×2 (08:55→19:57)
[2019-10-18] MEDS: INSULIN GLARGINE 100 UNITS/ML 10 ML VIAL SQ SCH (20:11)
[2019-10-19] MEDS: CEFAZOLIN SODIUM 1 GM VIAL IVP SCH ×2 (03:57→13:03)
[2019-10-19 04:06] VITALS: BP 101/52
[2019-10-19 05:21] LABS: HEMATOCRIT 35.5 % (42-54); MEAN CORPUSCULAR HEMOGLOBIN 29.7 pg (27.0-33.0); MEAN CORPUSCULAR HGB CONC 32.7 g/dL (32.0-36.0); RED BLOOD CELL COUNT(AUTO) 3.9 MIL/uL (4.50-6.20); RED CELL DISTRIBUTION WIDTH 14.2 % (11.0-15.5); WHITE BLOOD COUNT (AUTO) 5.5 K/uL (4.8-10.8)
[2019-10-19 05:33] LABS: POTASSIUM 3.8 mmol/L (3.5-5.1)
[2019-10-19] MEDS: INSULIN HUMULIN R 100 UNIT/ML 3ML SQ SCH ×2 (05:33→11:51)
[2019-10-19 08:35] VITALS: BP 132/81
[2019-10-19] MEDS: FAMOTIDINE 20MG TAB 20 MG TAB PO SCH (09:00)
[2019-10-19] MEDS: VANCOMYCIN 1.5 GM in SODIUM CHLORIDE 0.9% 250 ML IV SCH (09:05)
[2019-10-19] MEDS: ENOXAPARIN SODIUM 40 MG/0.4 ML SYRINGE SQ SCH (09:06)
--- NOTE | 2019-10-19 12:22 | NUR ---
CM Note: [employer] approval CM spoke to [facility], pt has approval, will deliver [facility]vac in pt room today. Primary nurse aware. CM to cont to follow up.
--- NOTE | 2019-10-19 12:24 | NUR ---
CM Note: [facility] approval CM spoke to [facility], pt has approval for wheelchair w/leg rest, will deliver DME at pt's house. Primary nurse aware. CM to cont to follow up.
--- NOTE | 2019-10-19 12:27 | NUR ---
[facility], verified pt is currently active, will see pt tomorrow. Primary nurse aware. CM to cont to follow up.
[2019-10-19 12:34] VITALS: BP 132/81
--- NOTE | 2019-10-19 15:30 | NUR ---
DISCHARGE DISCHARGE INSTRUCTIONS GIVEN TO PATIENT, VERBALIZED UNDERSTANDING. PATIENT IS BEING DISCHARGED HOME WITH HOME HEALTH. REPORT CALLED IN TO ALFA LUA AT [facility]. PRESCRIPTIONS FOR ANTIBIOTICS PRESCRIBED BY DR SOSA, Called in to [facility] on [address]. IV REMOVED.
== END 2019-10-19 16:34 | disposition home health service (06) | DRG 305 ==
LOC: EDH 12:32 → EDHIP 16:08 → OBSVTOIN 16:08 → 3AH 23:36
PROVIDERS: ADMIT Internal Medicine; ATTEND Internal Medicine
PROC: 0Y6N0Z9 Detachment at Left Foot, Partial 1st Ray, Open Approach (ICD-10-PCS; 2019-10-13 13:42)
PROC: 0KBW0ZZ Excision of Left Foot Muscle, Open Approach (ICD-10-PCS; 2019-10-13 13:42)
PROC: B41G1ZZ Fluoroscopy of Left Lower Extremity Arteries using Low Osmolar Contrast (ICD-10-PCS; principal; 2019-10-14)
DX: E11.69 Type 2 diabetes mellitus with other specified complication (principal); M72.6 Necrotizing fasciitis; I42.0 Dilated cardiomyopathy; I11.0 Hypertensive heart disease with heart failure; I96 Gangrene, not elsewhere classified; E11.52 Type 2 diabetes mellitus with diabetic peripheral angiopathy with gangrene; M86.8X7 Other osteomyelitis, ankle and foot; I50.9 Heart failure, unspecified; E11.621 Type 2 diabetes mellitus with foot ulcer; L97.529 Non-pressure chronic ulcer of other part of left foot with unspecified severity; L03.90 Cellulitis, unspecified; J44.9 Chronic obstructive pulmonary disease, unspecified; F32.9 Major depressive disorder, single episode, unspecified; E78.5 Hyperlipidemia, unspecified; L02.612 Cutaneous abscess of left foot; B95.2 Enterococcus as the cause of diseases classified elsewhere; B95.4 Other streptococcus as the cause of diseases classified elsewhere; R53.81 Other malaise; B95.61 Methicillin susceptible Staphylococcus aureus infection as the cause of diseases classified elsewhere; F41.9 Anxiety disorder, unspecified; E66.9 Obesity, unspecified; Z68.37 Body mass index [BMI] 37.0-37.9, adult; Z86.19 Personal history of other infectious and parasitic diseases; Z79.4 Long term (current) use of insulin; Z79.899 Other long term (current) drug therapy; Z83.3 Family history of diabetes mellitus; Z82.49 Family history of ischemic heart disease and other diseases of the circulatory system
CPT/HCPCS: 36247; 36415; 73620; 73718; 75710; 80048; 80053; 80202; 82550; 82948; 83605; 83735; 83874; 84145; 84484; 85025; 85027; 85610; 85651; 85730; 86140; 87040; 87070; 87076; 87077; 87186; 87205; 88305; 88307; 88311; 93005; 93925; 93970; 97039; 99156; 99157; C1760; C1769; C1893; C1894; G0378; J0690; J1100; J1644; J1650; J1815; J2001; J2250; J2405; J2543; J2704; J3010; J3370; J3490; J7030; J7040; J7050; Q9967

== ENCOUNTER → 2020-01-15 | Outpatient (CLI) | payer MEDICAID | END | disposition home or self-care (01) | LOC: RAH 08:47 | PROVIDERS: ATTEND Internal Medicine Gastroenterology | DX: K76.0 Fatty (change of) liver, not elsewhere classified (principal) | CPT/HCPCS: 76700; 93975 ==

== ENCOUNTER 2020-04-26 09:00 | Inpatient (IN) | payer MEDICAID ==
[~2020-04-26] VITALS: Ht 172.7 cm; Wt 107.0 kg
[~2020-04-26 09:00] MED LIST changes: -LISI-613 PO; +LISI20TA24 PO
[2020-04-26 10:06] LABS: BASOPHILS % (AUTO) 0.8 % (0.0-5.0); EOSINOPHILS % (AUTO) 2.8 % (0.0-8.0); HEMATOCRIT 42.9 % (42-54); LYMPHOCYTES % (AUTO) 22.9 % (21.0-51.0); MEAN CORPUSCULAR HEMOGLOBIN 31.4 pg (27.0-33.0); MEAN CORPUSCULAR HGB CONC 34.5 g/dL (32.0-36.0); MEAN CORPUSCULAR VOLUME 91.1 fL (79-99); MONOCYTES % (AUTO) 7.7 % (3.0-13.0); NEUTROPHILS % (AUTO) 65.5 % (40.0-77.0); PLATELET COUNT (AUTO) 205 K/uL (130-400); RED BLOOD CELL COUNT(AUTO) 4.71 MIL/uL (4.50-6.20); RED CELL DISTRIBUTION WIDTH 13.1 % (11.0-15.5); WHITE BLOOD COUNT (AUTO) 6.1 K/uL (4.8-10.8)
[2020-04-26 10:19] LABS: CREATININE 1.1 mg/dL (0.5-1.5); POTASSIUM 4.6 mmol/L (3.5-5.1)
[2020-04-26 10:24] LABS: ALBUMIN 3.3 g/dL (3.5-5.0); BILIRUBIN,TOTAL 0.7 mg/dL (0.2-1.0); TOTAL PROTEIN, SERUM 7.6 g/dL (6.0-8.3)
[2020-04-26 11:12] LABS: ERYTHROCYTE SEDIMENTATION RATE 40 MM/HR (0-20)
[2020-04-26] MEDS ORDERED: LEVOFLOXACIN 500 MG/D5W 100 ML 100 ML ONE (11:12)
[2020-04-26] MEDS ORDERED: VANCOMYCIN 1G 1.75 GM in 0.9% NACL 250ML 250 ML IV SCH (11:30)
[2020-04-26] MEDS ORDERED: COMPOUND IV REFRIGERATED 1 EACH IVSOLN MISC PRN (11:30)
[2020-04-26] MEDS: ZOSYN 3.375GM+NS 50ML 50 ML IV SCH ×2 (13:00→21:00)
[2020-04-26] MEDS ORDERED: ACETAMINOPHEN 325 MG TAB PO PRN (13:00)
[2020-04-26] MEDS ORDERED: DEXTROSE 50%-WATER 50 ML DISP.SYRIN IV PRN (13:00)
[2020-04-26] MEDS ORDERED: LACTULOSE 20 GM/30 ML UDCUP PO PRN (13:00)
[2020-04-26] MEDS ORDERED: MAGNESIUM 2GM PREMIX 50ML 50 ML IV PRN (13:00)
[2020-04-26] MEDS ORDERED: HYDROMORPHONE 0.5 MG SYG (0.5MG/0.5ML) IVP PRN (13:00)
[2020-04-26] MEDS ORDERED: ONDANSETRON 4MG INJ IVP PRN (13:00)
[2020-04-26] MEDS ORDERED: VANCOMYCIN PROTOCOL PER PHARMACY IV SCH (13:00)
[2020-04-26] MEDS ORDERED: LOPERAMIDE 1 MG/7.5 ML UDCUP PO PRN (13:00)
[2020-04-26] MEDS ORDERED: GLUCAGON 1MG KIT 1 MG ML IM PRN (13:00)
[2020-04-26] MEDS ORDERED: ZOSYN 3.375GM+NS 50ML 50 ML IV ONE (15:21)
[2020-04-26] MEDS: INSULIN HUMULIN R 100 UNIT/ML 3ML SQ SCH ×2 (16:30→21:00)
[2020-04-26] MEDS ORDERED: HEPARIN 5,000 UNIT VIAL ONE (20:40)
[2020-04-26] MEDS: HEPARIN 5,000 UNIT VIAL SQ SCH (21:00)
[2020-04-27] MEDS: ZOSYN 3.375GM+NS 50ML 50 ML IV SCH ×3 (05:00→20:36)
[2020-04-27 07:11] LABS: BASOPHILS % (AUTO) 0.8 % (0.0-5.0); EOSINOPHILS % (AUTO) 3.1 % (0.0-8.0); LYMPHOCYTES % (AUTO) 34.3 % (21.0-51.0); MEAN CORPUSCULAR HEMOGLOBIN 30.8 pg (27.0-33.0); MEAN CORPUSCULAR HGB CONC 34.1 g/dL (32.0-36.0); MEAN CORPUSCULAR VOLUME 90.1 fL (79-99); MONOCYTES % (AUTO) 8.5 % (3.0-13.0); PLATELET COUNT (AUTO) 199 K/uL (130-400); RED BLOOD CELL COUNT(AUTO) 4.55 MIL/uL (4.50-6.20); RED CELL DISTRIBUTION WIDTH 12.9 % (11.0-15.5); WHITE BLOOD COUNT (AUTO) 6.5 K/uL (4.8-10.8)
[2020-04-27] MEDS: INSULIN HUMULIN R 100 UNIT/ML 3ML SQ SCH ×4 (07:30→21:20)
[2020-04-27 07:54] LABS: ALANINE AMINOTRANSFERASE 18 U/L (12-78); ALBUMIN 2.9 g/dL (3.5-5.0); ASPARTATE AMINOTRANSFERASE 13 U/L (10-37); BILIRUBIN,TOTAL 0.5 mg/dL (0.2-1.0); CARBON DIOXIDE 28 mmol/L (21-32); CHLORIDE 106 mmol/L (101-111); GLOMERULAR FILTR. RATE CALC 83 mL/min (>60); GLUCOSE,RANDOM 159 mg/dL (70-105); PHOSPHORUS 3.1 mg/dL (2.5-4.9); POTASSIUM 3.8 mmol/L (3.5-5.1); SODIUM SERUM 140 mmol/L (136-145); TOTAL PROTEIN, SERUM 7.3 g/dL (6.0-8.3); UREA NITROGEN, BLOOD 11 mg/dL (7-18)
[2020-04-27 08:38] VITALS: BP 135/74
[2020-04-27] MEDS: VANCOMYCIN 1G/250ML KIT 250 ML IV SCH ×3 (11:41→23:11)
[2020-04-27] MEDS: PANTOPRAZOLE 40 MG TAB DR PO SCH (11:41)
[2020-04-27] MEDS: HEPARIN 5,000 UNIT VIAL SQ SCH ×2 (11:46→19:36)
[2020-04-27] MEDS ORDERED: METF-446 PO (12:36)
[2020-04-27] MEDS ORDERED: INSU100I35 SQ (12:36)
[2020-04-27] MEDS ORDERED: ALPR0.5T PO (12:36)
[2020-04-27 16:03] VITALS: BP 103/57
[2020-04-27 20:36] VITALS: BP 106/45
[2020-04-27 23:55] VITALS: BP 111/69
[2020-04-28] VITALS (18 sets, daily range): BP systolic 107–153; BP diastolic 50–98
[2020-04-28] MEDS: ZOSYN 3.375GM+NS 50ML 50 ML IV SCH ×3 (04:12→20:58)
[2020-04-28 05:20] LABS: HEMATOCRIT 38.5 % (42-54); MEAN CORPUSCULAR HEMOGLOBIN 30.5 pg (27.0-33.0); MEAN CORPUSCULAR HGB CONC 33.5 g/dL (32.0-36.0); RED BLOOD CELL COUNT(AUTO) 4.23 MIL/uL (4.50-6.20); WHITE BLOOD COUNT (AUTO) 5.8 K/uL (4.8-10.8)
[2020-04-28 05:45] LABS: CREATININE 1.1 mg/dL (0.5-1.5); POTASSIUM 3.6 mmol/L (3.5-5.1)
[2020-04-28] MEDS: INSULIN HUMULIN R 100 UNIT/ML 3ML SQ SCH ×4 (06:01→20:36)
[2020-04-28] MEDS: PANTOPRAZOLE 40 MG TAB DR PO SCH (08:45)
[2020-04-28] MEDS: HEPARIN 5,000 UNIT VIAL SQ SCH ×2 (08:45→20:58)
[2020-04-28] MEDS: INSULIN GLARGINE 100 UNITS/ML 10 ML VIAL SQ SCH (08:45)
[2020-04-28] MEDS: VANCOMYCIN 1G 1.25 GM in 0.9% NACL 250ML 250 ML IV SCH ×2 (13:36→23:53)
[2020-04-28] MEDS: ASPIRIN 81MG CHEW TAB PO SCH (16:00)
[2020-04-28] MEDS ORDERED: MIDAZOLAM HCL 1 MG/ML 2ML VIAL ONE ×2 (17:37→19:17)
[2020-04-28] MEDS ORDERED: FENTANYL CITRATE PF 50 MCG/1 ML 2ML VIAL ONE ×2 (17:38→19:17)
[2020-04-28] MEDS ORDERED: PROPOFOL 10 MG/ML 20ML VIAL IV ONE (17:41)
[2020-04-28] MEDS ORDERED: BUPIVACAINE/PF 0.5% 30ML VIAL ONE (18:00)
[2020-04-28] MEDS ORDERED: LIDOCAINE HCL 1% 20 ML VIAL ONE (18:00)
[2020-04-28] MEDS ORDERED: ONDANSETRON 4MG INJ ONE (19:01)
[2020-04-28] MEDS: ATORVASTATIN 20 MG TABLET PO SCH (20:58)
[2020-04-28] MEDS: CARVEDILOL 25 MG TABLET PO SCH (20:58)
[2020-04-28] MEDS ORDERED: HYDROMORPHONE 2 MG VIAL (2MG/ML) IVP PRN (22:45)
[2020-04-29] VITALS (9 sets, daily range): BP systolic 100–128; BP diastolic 54–73
[2020-04-29] MEDS: MORPHINE 2 MG SYG IVP PRN ×2 (02:32→11:26)
[2020-04-29] MEDS: ZOSYN 3.375GM+NS 50ML 50 ML IV SCH ×3 (04:32→20:09)
[2020-04-29 04:33] LABS: HEMATOCRIT 37.4 % (42-54); MEAN CORPUSCULAR HEMOGLOBIN 30.5 pg (27.0-33.0); MEAN CORPUSCULAR HGB CONC 33.7 g/dL (32.0-36.0); MEAN CORPUSCULAR VOLUME 90.6 fL (79-99); RED BLOOD CELL COUNT(AUTO) 4.13 MIL/uL (4.50-6.20)
[2020-04-29 04:42] LABS: HEMOGLOBIN A1C 9.6 % (4.0-6.0)
[2020-04-29 04:43] LABS: CREATININE 1.1 mg/dL (0.5-1.5); POTASSIUM 3.9 mmol/L (3.5-5.1)
[2020-04-29] MEDS: INSULIN HUMULIN R 100 UNIT/ML 3ML SQ SCH ×4 (06:09→20:25)
[2020-04-29] MEDS: PANTOPRAZOLE 40 MG TAB DR PO SCH (08:22)
[2020-04-29] MEDS: ASPIRIN 81MG CHEW TAB PO SCH (08:22)
[2020-04-29] MEDS: CARVEDILOL 25 MG TABLET PO SCH ×2 (08:23→20:10)
[2020-04-29] MEDS: LOSARTAN 50 MG TABLET PO SCH (08:23)
[2020-04-29] MEDS: INSULIN GLARGINE 100 UNITS/ML 10 ML VIAL SQ SCH (08:35)
[2020-04-29] MEDS: HEPARIN 5,000 UNIT VIAL SQ SCH ×2 (08:35→20:18)
[2020-04-29] MEDS: ATORVASTATIN 20 MG TABLET PO SCH (20:10)
[2020-04-30 03:29] VITALS: BP 106/58
[2020-04-30 05:44] LABS: HEMATOCRIT 33.5 % (42-54); MEAN CORPUSCULAR HEMOGLOBIN 30.4 pg (27.0-33.0); MEAN CORPUSCULAR VOLUME 89.3 fL (79-99); RED BLOOD CELL COUNT(AUTO) 3.75 MIL/uL (4.50-6.20); RED CELL DISTRIBUTION WIDTH 12.8 % (11.0-15.5); WHITE BLOOD COUNT (AUTO) 7.7 K/uL (4.8-10.8)
[2020-04-30 06:00] LABS: CREATININE 1.1 mg/dL (0.5-1.5); POTASSIUM 3.6 mmol/L (3.5-5.1)
[2020-04-30] MEDS: ZOSYN 3.375GM+NS 50ML 50 ML IV SCH ×2 (06:40→13:57)
[2020-04-30] MEDS: INSULIN HUMULIN R 100 UNIT/ML 3ML SQ SCH ×2 (06:42→11:59)
[2020-04-30 07:58] VITALS: BP 109/67
[2020-04-30] MEDS: ASPIRIN 81MG CHEW TAB PO SCH (08:42)
[2020-04-30] MEDS: PANTOPRAZOLE 40 MG TAB DR PO SCH (08:42)
[2020-04-30] MEDS: LOSARTAN 50 MG TABLET PO SCH (08:42)
[2020-04-30] MEDS: CARVEDILOL 25 MG TABLET PO SCH (08:43)
[2020-04-30] MEDS: INSULIN GLARGINE 100 UNITS/ML 10 ML VIAL SQ SCH (08:53)
[2020-04-30] MEDS: HEPARIN 5,000 UNIT VIAL SQ SCH (08:57)
[2020-04-30 11:00] VITALS: BP 106/51
[2020-04-30 16:00] VITALS: BP 128/68
[2020-09-28] MEDS ORDERED: CYCL-309 PO (06:43)
[2020-09-28] MEDS ORDERED: LIDOP TP (06:43)
[2020-09-28] MEDS ORDERED: MELO7.5T12 PO (06:43)
== END 2020-04-30 17:55 | disposition home health service (06) | DRG 305 ==
LOC: EDH 09:00 → OBSVTOIN 09:01 → EDHIP 09:01 → 3AH 04-27 08:32
PROVIDERS: ADMIT Internal Medicine; ATTEND Internal Medicine
PROC: 0JBR0ZZ Excision of Left Foot Subcutaneous Tissue and Fascia, Open Approach (ICD-10-PCS; principal; 2020-04-27)
PROC: 0Y6N0ZB Detachment at Left Foot, Partial 2nd Ray, Open Approach (ICD-10-PCS; 2020-04-28)
PROC: 0Y6N0ZC Detachment at Left Foot, Partial 3rd Ray, Open Approach (ICD-10-PCS; 2020-04-28)
PROC: 0Y6N0ZD Detachment at Left Foot, Partial 4th Ray, Open Approach (ICD-10-PCS; 2020-04-28)
PROC: 0Y6N0ZF Detachment at Left Foot, Partial 5th Ray, Open Approach (ICD-10-PCS; 2020-04-28)
PROC: 0Y6N0Z9 Detachment at Left Foot, Partial 1st Ray, Open Approach (ICD-10-PCS; 2020-04-28 18:43)
DX: E11.52 Type 2 diabetes mellitus with diabetic peripheral angiopathy with gangrene (principal); E11.69 Type 2 diabetes mellitus with other specified complication; E11.621 Type 2 diabetes mellitus with foot ulcer; L03.032 Cellulitis of left toe; M86.672 Other chronic osteomyelitis, left ankle and foot; Z68.35 Body mass index [BMI] 35.0-35.9, adult; J44.9 Chronic obstructive pulmonary disease, unspecified; E66.01 Morbid (severe) obesity due to excess calories; L03.116 Cellulitis of left lower limb; I10 Essential (primary) hypertension; Z86.16 Personal history of COVID-19; I96 Gangrene, not elsewhere classified; F32.9 Major depressive disorder, single episode, unspecified; E11.40 Type 2 diabetes mellitus with diabetic neuropathy, unspecified; I42.0 Dilated cardiomyopathy; L97.529 Non-pressure chronic ulcer of other part of left foot with unspecified severity; Z60.2 Problems related to living alone; B95.1 Streptococcus, group B, as the cause of diseases classified elsewhere; F41.9 Anxiety disorder, unspecified; R53.81 Other malaise; B96.4 Proteus (mirabilis) (morganii) as the cause of diseases classified elsewhere; B95.4 Other streptococcus as the cause of diseases classified elsewhere; Z89.412 Acquired absence of left great toe; Z79.01 Long term (current) use of anticoagulants; Z79.82 Long term (current) use of aspirin; Z79.4 Long term (current) use of insulin; Z79.899 Other long term (current) drug therapy; Z83.3 Family history of diabetes mellitus
CPT/HCPCS: 36415; 73630; 73718; 80048; 80053; 80202; 82948; 83036; 83735; 84100; 84145; 85025; 85027; 85651; 86140; 87040; 87070; 87076; 87077; 87186; 87205; 88307; 88311; 93306; 93356; 93926; 97039; G0378; J1644; J1815; J1956; J2250; J2405; J2543; J2704; J3010; J3370; J3490; J7050

== ENCOUNTER → 2020-09-28 | Emergency (ER) | payer MEDICAID ==
[~2020-09-28] VITALS: Ht 172.7 cm; Wt 117.9 kg
[~2020-09-28] MED LIST changes: +ALPR0.5T PO; -ALPR1TAB2 PO; +CYCL10TA7 PO; +INSU100I35 SQ; +KETOROLAC 30MG VIAL (30MG/ML) IVP ONE; +LACTATED RINGERS 1000ML 1,000 ML IV ONE; +LIDOP TP; -LISI20TA24 PO; +MELO7.5T12 PO
[2020-09-28 02:01] VITALS: BP 152/83
[2020-09-28 02:54] LABS: BASOPHILS % (AUTO) 0.8 % (0.0-5.0); EOSINOPHILS % (AUTO) 3.8 % (0.0-8.0); HEMATOCRIT 43.7 % (42-54); LYMPHOCYTES % (AUTO) 43.1 % (21.0-51.0); MEAN CORPUSCULAR HGB CONC 34.1 g/dL (32.0-36.0); NEUTROPHILS % (AUTO) 44.1 % (40.0-77.0); PLATELET COUNT (AUTO) 184 K/uL (130-400); RED CELL DISTRIBUTION WIDTH 13.9 % (11.0-15.5)
[2020-09-28 03:02] LABS: CREATININE 1.1 mg/dL (0.5-1.5); POTASSIUM 3.9 mmol/L (3.5-5.1)
[2020-09-28 03:03] LABS: APPEARANCE,URINE Clear (CLEAR); BILIRUBIN,URINE Negative (NEGATIVE); COLOR,URINE Yellow (YELLOW); GLUCOSE, URINE (UA) >=1000 mg/dL (NEGATIVE); KETONES,URINE Negative (NEGATIVE); LEUKOCYTE ESTERASE ,URINE Negative (NEGATIVE); NITRATE,URINE Negative (NEGATIVE); OCCULT BLOOD,URINE Negative (NEGATIVE); PH,URINE 5.5 (5.0-8.0); PROTEIN,URINE Trace mg/dL (NEGATIVE)
[2020-09-28 03:07] LABS: ALBUMIN 3.5 g/dL (3.5-5.0); BILIRUBIN,TOTAL 0.6 mg/dL (0.2-1.0); TOTAL PROTEIN, SERUM 7.4 g/dL (6.0-8.3)
[2020-09-28 03:11] LABS: BACTERIA,URINE Rare /HPF (None Seen); RBC,URINE 0-1 /HPF (0-1); SQUAMOUS EPITHELIAL CELL,UR 0-2 /HPF (0-2)
[2020-09-28 03:29] VITALS: BP 159/72
[2020-09-28 05:52] VITALS: BP 143/69
== END | disposition home or self-care (01) ==
LOC: EDH 01:55
DX: M54.5 Low back pain (principal); M62.838 Other muscle spasm; E11.9 Type 2 diabetes mellitus without complications; J44.9 Chronic obstructive pulmonary disease, unspecified; Z79.899 Other long term (current) drug therapy; Z79.4 Long term (current) use of insulin
CPT/HCPCS: 36415; 74176; 80053; 81001; 83690; 85025; 96361 ×2; 96374; 99284; J1885; J7120

== ENCOUNTER 2021-02-26 11:42 | Emergency (ER) | payer MEDICAID ==
[~2021-02-26] VITALS: Ht 172.7 cm; Wt 122.5 kg
[~2021-02-26 11:42] MED LIST changes: +CYCL-309 PO; -CYCL10TA7 PO; -KETOROLAC 30MG VIAL (30MG/ML) IVP ONE; -LACTATED RINGERS 1000ML 1,000 ML IV ONE
[2021-02-26] MEDS ORDERED: HYDROCODONE/ACETAMINOPHEN 10/325 MG TAB PO SCH (13:00)
[2021-02-26 13:24] LABS: BASOPHILS % (AUTO) 0.5 % (0.0-5.0); EOSINOPHILS % (AUTO) 2.3 % (0.0-8.0); HEMATOCRIT 43.4 % (42-54); LYMPHOCYTES % (AUTO) 23.3 % (21.0-51.0); MEAN CORPUSCULAR HEMOGLOBIN 30.8 pg (27.0-33.0); MONOCYTES % (AUTO) 6.7 % (3.0-13.0); NEUTROPHILS % (AUTO) 67.1 % (40.0-77.0); PLATELET COUNT (AUTO) 186 K/uL (130-400); RED BLOOD CELL COUNT(AUTO) 4.93 MIL/uL (4.50-6.20); RED CELL DISTRIBUTION WIDTH 12.9 % (11.0-15.5); WHITE BLOOD COUNT (AUTO) 8.3 K/uL (4.8-10.8)
[2021-02-26 13:40] LABS: ALBUMIN 3.6 g/dL (3.5-5.0); BILIRUBIN,TOTAL 0.6 mg/dL (0.2-1.0); CRP QUANTITATIVE 31.1 mg/L (0.00-9.0); POTASSIUM 4.3 mmol/L (3.5-5.1); TOTAL PROTEIN, SERUM 7.7 g/dL (6.0-8.3)
[2021-02-26] MEDS ORDERED: INSULIN HUMULIN R 100 UNIT/ML 3ML ONE (14:34)
[2021-02-26] MEDS ORDERED: 0.9%NACL 1000ML 1,000 ML IV ONE (15:30)
[2021-02-26] MEDS ORDERED: INSULIN HUMULIN R 100 UNIT/ML 3ML SQ ONE (15:30)
[2021-02-26] MEDS ORDERED: ACET-2247 PO (16:12)
[2021-02-26 16:30] VITALS: BP 158/88
== END 2021-02-26 16:33 | disposition home or self-care (01) ==
LOC: EDH 11:42
DX: S93.402A Sprain of unspecified ligament of left ankle, initial encounter (principal); E11.65 Type 2 diabetes mellitus with hyperglycemia; J44.9 Chronic obstructive pulmonary disease, unspecified; E66.9 Obesity, unspecified; Z79.1 Long term (current) use of non-steroidal anti-inflammatories (NSAID); Z79.4 Long term (current) use of insulin; Z79.899 Other long term (current) drug therapy; Z68.41 Body mass index [BMI] 40.0-44.9, adult; X58.XXXA Exposure to other specified factors, initial encounter; Y93.89 Activity, other specified; Y92.89 Other specified places as the place of occurrence of the external cause; Y99.8 Other external cause status
CPT/HCPCS: 36415; 73600; 80053; 82010; 82948; 85025; 86140; 93971; 96360; 96361; 96372; 99285; J1815

== ENCOUNTER 2021-07-24 15:11 | Emergency (ER) | payer MEDICAID ==
[~2021-07-24] VITALS: Ht 172.7 cm; Wt 117.9 kg
[~2021-07-24 15:11] MED LIST changes: +ACET-2247 PO
[2021-07-24 16:09] LABS: BASOPHILS % (AUTO) 0.7 % (0.0-5.0); MEAN CORPUSCULAR HEMOGLOBIN 29.8 pg (27.0-33.0); MEAN CORPUSCULAR HGB CONC 32.9 g/dL (32.0-36.0); MEAN CORPUSCULAR VOLUME 90.7 fL (79-99); MONOCYTES % (AUTO) 6.8 % (3.0-13.0); NEUTROPHILS % (AUTO) 52.3 % (40.0-77.0); PLATELET COUNT (AUTO) 197 K/uL (130-400); RED BLOOD CELL COUNT(AUTO) 4.19 MIL/uL (4.50-6.20); RED CELL DISTRIBUTION WIDTH 12.5 % (11.0-15.5); WHITE BLOOD COUNT (AUTO) 5.7 K/uL (4.8-10.8)
[2021-07-24 16:25] LABS: CREATININE 0.9 mg/dL (0.5-1.5)
[2021-07-24 16:30] LABS: ALBUMIN 2.9 g/dL (3.5-5.0); BILIRUBIN,TOTAL 0.4 mg/dL (0.2-1.0); TOTAL PROTEIN, SERUM 7.5 g/dL (6.0-8.3)
[2021-07-24 16:44] VITALS: BP 117/61
[2021-07-24 16:49] LABS: APPEARANCE,URINE Clear (CLEAR); BILIRUBIN,URINE Negative (NEGATIVE); COLOR,URINE Yellow (YELLOW); GLUCOSE, URINE (UA) 250 mg/dL (NEGATIVE); KETONES,URINE Negative (NEGATIVE); LEUKOCYTE ESTERASE ,URINE Trace (NEGATIVE); NITRATE,URINE Negative (NEGATIVE); OCCULT BLOOD,URINE Negative (NEGATIVE); PROTEIN,URINE Trace mg/dL (NEGATIVE)
[2021-07-24] MEDS ORDERED: CLIN-141 PO (17:10)
[2021-07-24] MEDS ORDERED: CLINDAMYCIN IVPB 600MG/50ML 50 ML IV STA (17:10)
[2021-07-24] MEDS ORDERED: CLINDAMYCIN IVPB 600MG/50ML 50 ML IV ONE (17:16)
[2021-07-24 17:25] LABS: RBC,URINE 0-1 /HPF (0-1)
[2021-07-24 17:36] LABS: BACTERIA,URINE Rare /HPF (None Seen); SQUAMOUS EPITHELIAL CELL,UR Few /HPF (0-2)
== END 2021-07-24 17:52 | disposition home or self-care (01) ==
LOC: EDH 15:11
DX: L03.031 Cellulitis of right toe (principal); J44.9 Chronic obstructive pulmonary disease, unspecified; E11.9 Type 2 diabetes mellitus without complications; I10 Essential (primary) hypertension; Z98.890 Other specified postprocedural states; Z79.4 Long term (current) use of insulin; Z79.899 Other long term (current) drug therapy
CPT/HCPCS: 36415; 73630; 80053; 81001; 83605; 84484; 85025; 85651; 96365; 99284; J3490

== ENCOUNTER 2021-10-08 14:39 | Inpatient (IN) | payer MEDICAID ==
[~2021-10-08] VITALS: Ht 175.3 cm; Wt 116.2 kg
[~2021-10-08 14:39] MED LIST changes: -ACET-2247 PO; -ALBU6.7H9 IH; +ALBU8.5H8 IH; +ALPR0.255 PO; -ALPR0.5T PO; -AMYL1CAP63 PO; +ATOR40TA69 PO; +BENZ200C53 PO; +BUDE10.26 IH; +BYDUREON BCISE SQ; -CANA300T PO; +CARV25TA77 PO; -CHOL50004 PO; +CYANOCOBALAMIN 1000 MCG/ML IM; -CYCL-309 PO; -EXEN10PE3 SQ; +HYDR-4068 PO; -HYDR-4453 PO; -ICOS1CAP PO; +ICOS1CAP2 PO; -LIDOP TP; +LOSA100T58 PO; -MELO7.5T12 PO; -PIOG15TA66 PO; +PIOG45TA64 PO
[2021-10-08 15:14] LABS: BASOPHILS % (AUTO) 0.9 % (0.0-5.0); EOSINOPHILS % (AUTO) 3.4 % (0.0-8.0); HEMATOCRIT 41.1 % (42-54); LYMPHOCYTES % (AUTO) 32.8 % (21.0-51.0); MEAN CORPUSCULAR HGB CONC 33.8 g/dL (32.0-36.0); MEAN CORPUSCULAR VOLUME 88.8 fL (79-99); MONOCYTES % (AUTO) 6.3 % (3.0-13.0); NEUTROPHILS % (AUTO) 56.3 % (40.0-77.0); PLATELET COUNT (AUTO) 272 K/uL (130-400); RED BLOOD CELL COUNT(AUTO) 4.63 MIL/uL (4.50-6.20); RED CELL DISTRIBUTION WIDTH 13.7 % (11.0-15.5); WHITE BLOOD COUNT (AUTO) 6.7 K/uL (4.8-10.8)
[2021-10-08 15:31] LABS: CREATININE 1.5 mg/dL (0.5-1.5); POTASSIUM 3.9 mmol/L (3.5-5.1)
[2021-10-08 15:41] LABS: ALBUMIN 3.1 g/dL (3.5-5.0); BILIRUBIN,TOTAL 0.5 mg/dL (0.2-1.0); CRP QUANTITATIVE 57.4 mg/L (0.00-9.0); TOTAL PROTEIN, SERUM 8.2 g/dL (6.0-8.3)
[2021-10-08] MEDS ORDERED: VANCOMYCIN KIT 1 GM/250 ML IV.KIT IV ONE (16:00)
[2021-10-08] MEDS ORDERED: ZOSYN 3.375GM +NS 50ML IV SCH (16:30)
[2021-10-08] MEDS ORDERED: VANCOMYCIN 1G/250ML KIT 250 ML IV ONE (17:19)
[2021-10-08] MEDS ORDERED: ONDANSETRON 4MG INJ IVP PRN (18:30)
[2021-10-08] MEDS: ZOSYN 3.375GM +NS 50ML IV SCH (18:30)
[2021-10-08] MEDS ORDERED: VANCOMYCIN PROTOCOL PER PHARMACY IV SCH (18:30)
[2021-10-08] MEDS ORDERED: ACETAMINOPHEN 325 MG TAB PO PRN (18:30)
[2021-10-08 22:58] VITALS: BP 146/79
[2021-10-09] MEDS: ZOSYN 3.375GM +NS 50ML IV SCH ×3 (02:30→16:47)
[2021-10-09] MEDS: INSULIN HUMULIN R 100 UNIT/ML 3ML SQ SCH ×4 (07:20→23:45)
[2021-10-09 07:40] VITALS: BP 154/99
[2021-10-09] MEDS: ENOXAPARIN SODIUM 40 MG/0.4 ML SYRINGE SQ SCH (09:56)
[2021-10-09] MEDS: PANTOPRAZOLE 40 MG TAB DR PO SCH (09:56)
[2021-10-09 11:40] VITALS: BP 156/84
[2021-10-09 15:00] VITALS: BP 157/87
[2021-10-09] MEDS ORDERED: HYDROCODONE/ACETAMINOPHEN 10/325 MG TAB PO PRN (17:00)
[2021-10-09] MEDS ORDERED: BENZONATATE 100 MG CAPSULE PO PRN (17:30)
[2021-10-09 19:37] VITALS: BP 155/78
[2021-10-09 22:28] VITALS: BP 120/68
[2021-10-09] MEDS: INSULIN GLARGINE 100 UNITS/ML 10 ML VIAL SQ SCH (23:46)
[2021-10-10] MEDS: ATORVASTATIN 40 MG TABLET PO SCH ×2 (00:01→23:13)
[2021-10-10] MEDS: FISH OIL 1000 MG/CAP PO SCH ×3 (00:01→23:13)
[2021-10-10] MEDS: CARVEDILOL 25 MG TABLET PO SCH ×3 (00:01→23:14)
[2021-10-10] MEDS ORDERED: RENAL DOSE IV PRN (01:30)
[2021-10-10] MEDS: 0.9%NACL 1000ML 1,000 ML IV SCH ×3 (02:10→21:30)
[2021-10-10] MEDS: MEROPENEM 1 GM VIAL IVP SCH ×3 (02:10→17:37)
[2021-10-10 02:42] VITALS: BP 94/54
[2021-10-10] MEDS: INSULIN HUMULIN R 100 UNIT/ML 3ML SQ SCH ×4 (05:47→23:30)
[2021-10-10 06:15] LABS: EOSINOPHILS % (AUTO) 4.1 % (0.0-8.0); HEMATOCRIT 36.3 % (42-54); LYMPHOCYTES % (AUTO) 40.2 % (21.0-51.0); MEAN CORPUSCULAR HEMOGLOBIN 29.5 pg (27.0-33.0); MEAN CORPUSCULAR HGB CONC 33.6 g/dL (32.0-36.0); MEAN CORPUSCULAR VOLUME 87.9 fL (79-99); MONOCYTES % (AUTO) 8.2 % (3.0-13.0); NEUTROPHILS % (AUTO) 46.2 % (40.0-77.0); PLATELET COUNT (AUTO) 202 K/uL (130-400); RED BLOOD CELL COUNT(AUTO) 4.13 MIL/uL (4.50-6.20); RED CELL DISTRIBUTION WIDTH 13.6 % (11.0-15.5); WHITE BLOOD COUNT (AUTO) 6.1 K/uL (4.8-10.8)
[2021-10-10 06:37] LABS: CREATININE 1.2 mg/dL (0.5-1.5); MAGNESIUM 1.4 mg/dL (1.80-2.40); PHOSPHORUS 3.7 mg/dL (2.5-4.9); POTASSIUM 3.7 mmol/L (3.5-5.1)
[2021-10-10 07:40] VITALS: BP 127/78
[2021-10-10] MEDS: ALBUTEROL INHALER 90MCG/INH IH SCH ×4 (09:00→21:00)
[2021-10-10] MEDS: PIOGLITAZONE 45MG TAB PO SCH (09:47)
[2021-10-10] MEDS: LOSARTAN 100 MG TABLET PO SCH (09:48)
[2021-10-10] MEDS: PANTOPRAZOLE 40 MG TAB DR PO SCH (09:48)
[2021-10-10] MEDS: ENOXAPARIN SODIUM 40 MG/0.4 ML SYRINGE SQ SCH (09:48)
[2021-10-10 11:50] VITALS: BP 147/86
[2021-10-10] MEDS: VANCOMYCIN 1.5 GM/250 ML BAG 250 ML IV ONE ×2 (13:36→16:11)
[2021-10-10 15:00] VITALS: BP 158/88
[2021-10-10 20:00] VITALS: BP 168/89
[2021-10-10] MEDS ORDERED: 0.9% NACL 250ML 250 ML ONE (21:27)
[2021-10-10 21:49] LABS: CREATININE 1.1 mg/dL (0.5-1.5); POTASSIUM 4.5 mmol/L (3.5-5.1)
[2021-10-10] MEDS: ALPRAZOLAM 0.25 MG TABLET PO SCH ×2 (23:13)
[2021-10-10] MEDS: VANCOMYCIN 750MG VIAL IVPB SCH (23:14)
[2021-10-10] MEDS: INSULIN GLARGINE 100 UNITS/ML 10 ML VIAL SQ SCH (23:31)
[2021-10-11] VITALS (13 sets, daily range): BP systolic 118–164; BP diastolic 65–87
[2021-10-11] MEDS: MEROPENEM 1 GM VIAL IVP SCH ×2 (01:20→10:03)
[2021-10-11] MEDS: VANCOMYCIN 750MG VIAL IVPB SCH ×3 (05:19→21:00)
[2021-10-11] MEDS: CARVEDILOL 25 MG TABLET PO SCH ×2 (05:20→21:06)
[2021-10-11 05:31] LABS: PROTHROMBIN TIME 10.9 SEC (9.6-11.6)
[2021-10-11 05:36] LABS: HEMATOCRIT 36.3 % (42-54); MEAN CORPUSCULAR HEMOGLOBIN 30.3 pg (27.0-33.0); MEAN CORPUSCULAR HGB CONC 34.2 g/dL (32.0-36.0); MEAN CORPUSCULAR VOLUME 88.8 fL (79-99); RED BLOOD CELL COUNT(AUTO) 4.09 MIL/uL (4.50-6.20); RED CELL DISTRIBUTION WIDTH 13.2 % (11.0-15.5); WHITE BLOOD COUNT (AUTO) 5.4 K/uL (4.8-10.8)
[2021-10-11 06:04] LABS: ALBUMIN 2.5 g/dL (3.5-5.0); BILIRUBIN,TOTAL 0.4 mg/dL (0.2-1.0); POTASSIUM 4.1 mmol/L (3.5-5.1); TOTAL PROTEIN, SERUM 6.6 g/dL (6.0-8.3)
[2021-10-11] MEDS: 0.9%NACL 1000ML 1,000 ML IV SCH ×2 (07:30→17:30)
[2021-10-11] MEDS: INSULIN HUMULIN R 100 UNIT/ML 3ML SQ SCH ×4 (07:30→21:20)
[2021-10-11] MEDS ORDERED: NITROGLYCERIN 50MG VIAL ONE (08:30)
[2021-10-11] MEDS ORDERED: IODIXANOL 320 MG/ML 100 ML VIAL ONE (08:30)
[2021-10-11] MEDS ORDERED: HEPARIN 10,000 UNIT/10ML (1,000 UNIT/ML) VIAL ONE (08:30)
[2021-10-11] MEDS ORDERED: MIDAZOLAM HCL 1 MG/ML 2ML VIAL ONE (08:31)
[2021-10-11] MEDS ORDERED: FENTANYL CITRATE PF 50 MCG/1 ML 2ML VIAL ONE (08:31)
[2021-10-11] MEDS ORDERED: LIDOCAINE HCL 400MG/20ML VIAL ONE (08:31)
[2021-10-11] MEDS: ALBUTEROL INHALER 90MCG/INH IH SCH ×4 (09:00→21:00)
[2021-10-11] MEDS ORDERED: 0.9%NACL 1000ML 1,000 ML IV SCH (09:30)
[2021-10-11] MEDS: PIOGLITAZONE 45MG TAB PO SCH (10:03)
[2021-10-11] MEDS: ENOXAPARIN SODIUM 40 MG/0.4 ML SYRINGE SQ SCH (10:03)
[2021-10-11] MEDS: PANTOPRAZOLE 40 MG TAB DR PO SCH (10:03)
[2021-10-11] MEDS: LOSARTAN 100 MG TABLET PO SCH (10:03)
[2021-10-11] MEDS: FISH OIL 1000 MG/CAP PO SCH ×2 (10:03→21:06)
[2021-10-11] MEDS ORDERED: 0.9% NACL 250ML 250 ML ONE (20:38)
[2021-10-11] MEDS: ALPRAZOLAM 0.25 MG TABLET PO SCH (21:06)
[2021-10-11] MEDS: ATORVASTATIN 40 MG TABLET PO SCH (21:06)
[2021-10-11] MEDS: INSULIN GLARGINE 100 UNITS/ML 10 ML VIAL SQ SCH (21:10)
[2021-10-12] VITALS (20 sets, daily range): BP systolic 108–149; BP diastolic 39–94
[2021-10-12] MEDS: 0.9%NACL 1000ML 1,000 ML IV SCH ×3 (03:47→23:56)
[2021-10-12] MEDS ORDERED: 0.9% NACL 250ML 250 ML ONE ×2 (04:45→21:24)
[2021-10-12] MEDS: VANCOMYCIN 750MG VIAL IVPB SCH ×3 (04:57→21:27)
[2021-10-12 05:22] LABS: BASOPHILS % (AUTO) 0.7 % (0.0-5.0); EOSINOPHILS % (AUTO) 3.1 % (0.0-8.0); HEMATOCRIT 36.9 % (42-54); LYMPHOCYTES % (AUTO) 46.5 % (21.0-51.0); MEAN CORPUSCULAR HEMOGLOBIN 29.7 pg (27.0-33.0); MEAN CORPUSCULAR HGB CONC 33.9 g/dL (32.0-36.0); MEAN CORPUSCULAR VOLUME 87.6 fL (79-99); MONOCYTES % (AUTO) 7.2 % (3.0-13.0); NEUTROPHILS % (AUTO) 42.1 % (40.0-77.0); PLATELET COUNT (AUTO) 207 K/uL (130-400); RED BLOOD CELL COUNT(AUTO) 4.21 MIL/uL (4.50-6.20); RED CELL DISTRIBUTION WIDTH 13.3 % (11.0-15.5); WHITE BLOOD COUNT (AUTO) 5.4 K/uL (4.8-10.8)
[2021-10-12 05:40] LABS: ALBUMIN 2.6 g/dL (3.5-5.0); BILIRUBIN,TOTAL 0.4 mg/dL (0.2-1.0); MAGNESIUM 1.5 mg/dL (1.80-2.40); POTASSIUM 3.7 mmol/L (3.5-5.1); TOTAL PROTEIN, SERUM 6.6 g/dL (6.0-8.3)
[2021-10-12] MEDS: INSULIN HUMULIN R 100 UNIT/ML 3ML SQ SCH ×4 (06:21→21:29)
[2021-10-12] MEDS: ENOXAPARIN SODIUM 40 MG/0.4 ML SYRINGE SQ SCH (08:12)
[2021-10-12] MEDS: ALBUTEROL INHALER 90MCG/INH IH SCH ×4 (09:00→21:00)
[2021-10-12 09:35] LABS: INR 0.99 (0.85-1.15); PROTHROMBIN TIME 10.8 SEC (9.6-11.6)
[2021-10-12] MEDS: PANTOPRAZOLE 40 MG TAB DR PO SCH (09:44)
[2021-10-12] MEDS: FISH OIL 1000 MG/CAP PO SCH ×2 (09:45→21:29)
[2021-10-12] MEDS: PIOGLITAZONE 45MG TAB PO SCH (09:45)
[2021-10-12] MEDS: CARVEDILOL 25 MG TABLET PO SCH ×2 (09:45→21:29)
[2021-10-12] MEDS: LOSARTAN 100 MG TABLET PO SCH (09:45)
[2021-10-12] MEDS ORDERED: FAMOTIDINE 20MG VIAL IV ONE (15:17)
[2021-10-12] MEDS ORDERED: LIDOCAINE PF 100MG/5ML (2%) SYRINGE 5ML ONE (15:17)
[2021-10-12] MEDS ORDERED: MIDAZOLAM HCL 1 MG/ML 2ML VIAL ONE (15:20)
[2021-10-12] MEDS ORDERED: FENTANYL CITRATE PF 50 MCG/1 ML 2ML VIAL ONE (15:20)
[2021-10-12] MEDS ORDERED: PROPOFOL 10 MG/ML 20ML VIAL IV ONE ×2 (15:20→15:58)
[2021-10-12] MEDS ORDERED: BUPIVACAINE/PF 0.5% 30ML VIAL INJ ONE (15:33)
[2021-10-12] MEDS ORDERED: LIDOCAINE HCL/EPINEPHRINE 50 ML VIAL IJ ONE (15:33)
[2021-10-12] MEDS ORDERED: EPHEDRINE SULFATE 50 MG/ML AMPULE ONE (16:30)
[2021-10-12] MEDS ORDERED: MORPHINE 2 MG SYG IVP PRN (18:00)
[2021-10-12] MEDS ORDERED: HYDROMORPHONE 0.5 MG SYG (0.5MG/0.5ML) IVP PRN (18:00)
[2021-10-12] MEDS: INSULIN GLARGINE 100 UNITS/ML 10 ML VIAL SQ SCH (21:28)
[2021-10-12] MEDS: ALPRAZOLAM 0.25 MG TABLET PO SCH (21:29)
[2021-10-12] MEDS: ATORVASTATIN 40 MG TABLET PO SCH (21:30)
[2021-10-13 00:14] VITALS: BP 140/71
[2021-10-13 04:22] VITALS: BP 143/81
[2021-10-13] MEDS ORDERED: 0.9% NACL 250ML 250 ML ONE (05:26)
[2021-10-13] MEDS: VANCOMYCIN 750MG VIAL IVPB SCH ×3 (05:33→23:35)
[2021-10-13 05:41] LABS: BASOPHILS % (AUTO) 0.7 % (0.0-5.0); EOSINOPHILS % (AUTO) 2.1 % (0.0-8.0); HEMATOCRIT 34.2 % (42-54); LYMPHOCYTES % (AUTO) 23.5 % (21.0-51.0); MEAN CORPUSCULAR HEMOGLOBIN 30.2 pg (27.0-33.0); MEAN CORPUSCULAR HGB CONC 34.5 g/dL (32.0-36.0); MEAN CORPUSCULAR VOLUME 87.5 fL (79-99); MONOCYTES % (AUTO) 8.2 % (3.0-13.0); NEUTROPHILS % (AUTO) 65.1 % (40.0-77.0); PLATELET COUNT (AUTO) 193 K/uL (130-400); RED BLOOD CELL COUNT(AUTO) 3.91 MIL/uL (4.50-6.20); RED CELL DISTRIBUTION WIDTH 13.4 % (11.0-15.5); WHITE BLOOD COUNT (AUTO) 7.3 K/uL (4.8-10.8)
[2021-10-13] MEDS: INSULIN HUMULIN R 100 UNIT/ML 3ML SQ SCH ×5 (06:14→23:33)
[2021-10-13 06:27] LABS: ALBUMIN 2.6 g/dL (3.5-5.0); BILIRUBIN,TOTAL 0.5 mg/dL (0.2-1.0); CREATININE 0.9 mg/dL (0.5-1.5); MAGNESIUM 1.4 mg/dL (1.80-2.40); POTASSIUM 3.6 mmol/L (3.5-5.1); TOTAL PROTEIN, SERUM 6.5 g/dL (6.0-8.3)
[2021-10-13 07:45] VITALS: BP 109/65
[2021-10-13] MEDS: ALBUTEROL INHALER 90MCG/INH IH SCH ×4 (09:00→21:00)
[2021-10-13] MEDS: LOSARTAN 100 MG TABLET PO SCH (11:07)
[2021-10-13] MEDS: ENOXAPARIN SODIUM 40 MG/0.4 ML SYRINGE SQ SCH (11:07)
[2021-10-13] MEDS: PIOGLITAZONE 45MG TAB PO SCH (11:07)
[2021-10-13] MEDS: FISH OIL 1000 MG/CAP PO SCH ×2 (11:07→23:36)
[2021-10-13] MEDS: PANTOPRAZOLE 40 MG TAB DR PO SCH (11:08)
[2021-10-13] MEDS: 0.9%NACL 1000ML 1,000 ML IV SCH (11:08)
[2021-10-13] MEDS: CARVEDILOL 25 MG TABLET PO SCH ×2 (11:08→23:36)
[2021-10-13 11:40] VITALS: BP 118/75
[2021-10-13] MEDS ORDERED: MAGNESIUM 2GM PREMIX 50ML 50 ML IV PRN (13:30)
[2021-10-13 15:40] VITALS: BP 138/68
[2021-10-13 20:00] VITALS: BP 130/70
[2021-10-13] MEDS: INSULIN GLARGINE 100 UNITS/ML 10 ML VIAL SQ SCH (23:31)
[2021-10-13] MEDS: ATORVASTATIN 40 MG TABLET PO SCH (23:36)
[2021-10-13] MEDS: ALPRAZOLAM 0.25 MG TABLET PO SCH (23:47)
[2021-10-14 00:44] VITALS: BP 147/66
[2021-10-14 04:13] VITALS: BP 130/62
[2021-10-14 04:56] LABS: BASOPHILS % (AUTO) 0.4 % (0.0-5.0); EOSINOPHILS % (AUTO) 2.5 % (0.0-8.0); HEMATOCRIT 30.5 % (42-54); MEAN CORPUSCULAR HEMOGLOBIN 30.3 pg (27.0-33.0); MEAN CORPUSCULAR HGB CONC 34.4 g/dL (32.0-36.0); MEAN CORPUSCULAR VOLUME 87.9 fL (79-99); MONOCYTES % (AUTO) 10.9 % (3.0-13.0); NEUTROPHILS % (AUTO) 50.9 % (40.0-77.0); PLATELET COUNT (AUTO) 177 K/uL (130-400); RED BLOOD CELL COUNT(AUTO) 3.47 MIL/uL (4.50-6.20); RED CELL DISTRIBUTION WIDTH 13.3 % (11.0-15.5); WHITE BLOOD COUNT (AUTO) 7.3 K/uL (4.8-10.8)
[2021-10-14] MEDS: VANCOMYCIN 750MG VIAL IVPB SCH ×3 (05:06→22:50)
[2021-10-14] MEDS: 0.9%NACL 1000ML 1,000 ML IV SCH (05:09)
[2021-10-14 05:11] LABS: ALBUMIN 2.3 g/dL (3.5-5.0); BILIRUBIN,TOTAL 0.6 mg/dL (0.2-1.0); MAGNESIUM 1.7 mg/dL (1.80-2.40); POTASSIUM 3.7 mmol/L (3.5-5.1)
[2021-10-14] MEDS: INSULIN HUMULIN R 100 UNIT/ML 3ML SQ SCH ×4 (06:47→22:44)
[2021-10-14 07:45] VITALS: BP 115/75
[2021-10-14] MEDS: ALBUTEROL INHALER 90MCG/INH IH SCH ×3 (09:00→21:00)
[2021-10-14] MEDS: PANTOPRAZOLE 40 MG TAB DR PO SCH (10:16)
[2021-10-14] MEDS: CARVEDILOL 25 MG TABLET PO SCH ×2 (10:16→22:49)
[2021-10-14] MEDS: PIOGLITAZONE 45MG TAB PO SCH (10:16)
[2021-10-14] MEDS: ENOXAPARIN SODIUM 40 MG/0.4 ML SYRINGE SQ SCH (10:16)
[2021-10-14] MEDS: FISH OIL 1000 MG/CAP PO SCH ×2 (10:21→22:48)
[2021-10-14] MEDS: LOSARTAN 100 MG TABLET PO SCH (10:21)
[2021-10-14 11:40] VITALS: BP 148/72
[2021-10-14 15:30] VITALS: BP 119/61
[2021-10-14] MEDS: INSULIN GLARGINE 100 UNITS/ML 10 ML VIAL SQ SCH (22:46)
[2021-10-14] MEDS: ALPRAZOLAM 0.25 MG TABLET PO SCH (22:47)
[2021-10-14] MEDS: ATORVASTATIN 40 MG TABLET PO SCH (22:47)
[2021-10-15] VITALS: BP 108/58
[2021-10-15] MEDS: 0.9%NACL 1000ML 1,000 ML IV SCH ×3 (01:30→21:30)
[2021-10-15 04:00] VITALS: BP 119/49
[2021-10-15 04:51] LABS: BASOPHILS % (AUTO) 0.8 % (0.0-5.0); LYMPHOCYTES % (AUTO) 34.3 % (21.0-51.0); MEAN CORPUSCULAR HEMOGLOBIN 29.8 pg (27.0-33.0); MEAN CORPUSCULAR HGB CONC 34.1 g/dL (32.0-36.0); MEAN CORPUSCULAR VOLUME 87.3 fL (79-99); MONOCYTES % (AUTO) 10.6 % (3.0-13.0); NEUTROPHILS % (AUTO) 51.1 % (40.0-77.0); PLATELET COUNT (AUTO) 158 K/uL (130-400); RED BLOOD CELL COUNT(AUTO) 3.32 MIL/uL (4.50-6.20); RED CELL DISTRIBUTION WIDTH 13.3 % (11.0-15.5); WHITE BLOOD COUNT (AUTO) 6.3 K/uL (4.8-10.8)
[2021-10-15] MEDS: VANCOMYCIN 750MG VIAL IVPB SCH ×3 (05:10→22:00)
[2021-10-15 05:17] LABS: ALBUMIN 2.2 g/dL (3.5-5.0); BILIRUBIN,TOTAL 0.7 mg/dL (0.2-1.0); POTASSIUM 3.6 mmol/L (3.5-5.1); TOTAL PROTEIN, SERUM 6.1 g/dL (6.0-8.3)
[2021-10-15] MEDS: INSULIN HUMULIN R 100 UNIT/ML 3ML SQ SCH ×4 (05:44→21:59)
[2021-10-15 08:00] VITALS: BP 133/78
[2021-10-15] MEDS: ALBUTEROL INHALER 90MCG/INH IH SCH ×3 (09:00→17:00)
[2021-10-15] MEDS: FISH OIL 1000 MG/CAP PO SCH ×2 (09:36→22:00)
[2021-10-15] MEDS: PIOGLITAZONE 45MG TAB PO SCH (09:36)
[2021-10-15] MEDS: LOSARTAN 100 MG TABLET PO SCH (09:36)
[2021-10-15] MEDS: CARVEDILOL 25 MG TABLET PO SCH ×2 (09:36→22:01)
[2021-10-15] MEDS: PANTOPRAZOLE 40 MG TAB DR PO SCH (09:36)
[2021-10-15] MEDS: ENOXAPARIN SODIUM 40 MG/0.4 ML SYRINGE SQ SCH (09:37)
[2021-10-15 12:00] VITALS: BP 134/67
[2021-10-15 16:00] VITALS: BP 140/68
[2021-10-15 20:00] VITALS: BP 153/71
[2021-10-15] MEDS: INSULIN GLARGINE 100 UNITS/ML 10 ML VIAL SQ SCH (21:58)
[2021-10-15] MEDS: ALPRAZOLAM 0.25 MG TABLET PO SCH (22:00)
[2021-10-15] MEDS: ATORVASTATIN 40 MG TABLET PO SCH (22:00)
[2021-10-16] VITALS: BP 153/71
[2021-10-16 04:08] VITALS: BP 138/62
[2021-10-16 04:52] LABS: BASOPHILS % (AUTO) 0.7 % (0.0-5.0); EOSINOPHILS % (AUTO) 3.6 % (0.0-8.0); HEMATOCRIT 30.1 % (42-54); LYMPHOCYTES % (AUTO) 34.9 % (21.0-51.0); MEAN CORPUSCULAR HEMOGLOBIN 29.2 pg (27.0-33.0); MEAN CORPUSCULAR HGB CONC 33.2 g/dL (32.0-36.0); MEAN CORPUSCULAR VOLUME 87.8 fL (79-99); MONOCYTES % (AUTO) 10.1 % (3.0-13.0); NEUTROPHILS % (AUTO) 50.4 % (40.0-77.0); PLATELET COUNT (AUTO) 174 K/uL (130-400); RED BLOOD CELL COUNT(AUTO) 3.43 MIL/uL (4.50-6.20); RED CELL DISTRIBUTION WIDTH 13.4 % (11.0-15.5); WHITE BLOOD COUNT (AUTO) 6.1 K/uL (4.8-10.8)
[2021-10-16] MEDS: VANCOMYCIN 750MG VIAL IVPB SCH ×2 (05:02→13:25)
[2021-10-16 05:18] LABS: ALBUMIN 2.2 g/dL (3.5-5.0); BILIRUBIN,TOTAL 0.6 mg/dL (0.2-1.0); CREATININE 0.9 mg/dL (0.5-1.5); MAGNESIUM 1.7 mg/dL (1.80-2.40); POTASSIUM 3.8 mmol/L (3.5-5.1); TOTAL PROTEIN, SERUM 6.4 g/dL (6.0-8.3)
[2021-10-16] MEDS: INSULIN HUMULIN R 100 UNIT/ML 3ML SQ SCH ×2 (06:31→11:30)
[2021-10-16 07:35] VITALS: BP 147/64
[2021-10-16] MEDS ORDERED: PANT40TA PO (09:16)
[2021-10-16] MEDS: FISH OIL 1000 MG/CAP PO SCH (10:36)
[2021-10-16] MEDS: PIOGLITAZONE 45MG TAB PO SCH (10:37)
[2021-10-16] MEDS: PANTOPRAZOLE 40 MG TAB DR PO SCH (10:37)
[2021-10-16] MEDS: CARVEDILOL 25 MG TABLET PO SCH (10:37)
[2021-10-16] MEDS: ENOXAPARIN SODIUM 40 MG/0.4 ML SYRINGE SQ SCH (10:37)
[2021-10-16] MEDS: LOSARTAN 100 MG TABLET PO SCH (10:37)
[2021-10-16] MEDS: 0.9%NACL 1000ML 1,000 ML IV SCH (10:38)
[2021-10-16 11:30] VITALS: BP 128/69
[2021-10-16 12:58] LABS: HEMOGLOBIN A1C 9.1 % (4.0-6.0)
== END 2021-10-16 15:30 | disposition home health service (06) | DRG 314 ==
LOC: EDH 14:39 → EDHIP 17:08 → 3DH 22:09
PROVIDERS: ADMIT Internal Medicine Critical Care Medicine; ATTEND Internal Medicine Critical Care Medicine
PROC: B41G1ZZ Fluoroscopy of Left Lower Extremity Arteries using Low Osmolar Contrast (ICD-10-PCS; 2021-10-11)
PROC: B41F1ZZ Fluoroscopy of Right Lower Extremity Arteries using Low Osmolar Contrast (ICD-10-PCS; 2021-10-11)
PROC: 0LQV0ZZ Repair Right Foot Tendon, Open Approach (ICD-10-PCS; 2021-10-12)
PROC: 0QTN0ZZ Resection of Right Metatarsal, Open Approach (ICD-10-PCS; principal; 2021-10-12 16:15)
DX: T87.43 Infection of amputation stump, right lower extremity (principal); A40.1 Sepsis due to streptococcus, group B; I42.0 Dilated cardiomyopathy; N17.9 Acute kidney failure, unspecified; E11.621 Type 2 diabetes mellitus with foot ulcer; L03.115 Cellulitis of right lower limb; L97.519 Non-pressure chronic ulcer of other part of right foot with unspecified severity; M86.8X7 Other osteomyelitis, ankle and foot; E86.0 Dehydration; T87.44 Infection of amputation stump, left lower extremity; I10 Essential (primary) hypertension; E11.65 Type 2 diabetes mellitus with hyperglycemia; E66.01 Morbid (severe) obesity due to excess calories; Z68.37 Body mass index [BMI] 37.0-37.9, adult; E78.5 Hyperlipidemia, unspecified; E11.69 Type 2 diabetes mellitus with other specified complication; Z20.822 Contact with and (suspected) exposure to COVID-19; Z89.411 Acquired absence of right great toe; E78.00 Pure hypercholesterolemia, unspecified; Z83.3 Family history of diabetes mellitus; L97.529 Non-pressure chronic ulcer of other part of left foot with unspecified severity; Y83.8 Other surgical procedures as the cause of abnormal reaction of the patient, or of later complication, without mention of misadventure at the time of the procedure
CPT/HCPCS: 36200; 36246; 36415; 71045; 73630; 73718; 75716; 80048; 80053; 80202; 82550; 82948; 83036; 83605; 83735; 84100; 84484; 85025; 85027; 85610; 85730; 86140; 87040; 87070; 87076; 87077; 87186; 87635; 93005; 93925; 93971; 97039; 99156; 99157; C1894; G0378; J1170; J1644; J1650; J1815; J2001; J2185; J2250; J2543; J2704; J3010; J3370; J3475; J3490; J7030; J7050; Q9967

== ENCOUNTER 2022-11-11 14:51 | Inpatient (IN) | payer MEDICAID ==
[~2022-11-11] VITALS: Ht 172.7 cm; Wt 116.3 kg
[~2022-11-11 14:51] MED LIST changes: -BYDUREON BCISE SQ; -CYANOCOBALAMIN 1000 MCG/ML IM; +DOXY100C5 PO; +Docusate Sodium 100 Mg Cap PO; -HYDR-4068 PO; -ICOS1CAP2 PO; -INSU100I35 SQ; -LINA5TAB PO; -LOSA100T58 PO; +LOSA100T59 PO; -METF-446 PO; +PANT40TA PO
[2022-11-11 18:04] LABS: BASOPHILS % (AUTO) 0.9 % (0.0-5.0); EOSINOPHILS % (AUTO) 2.6 % (0.0-8.0); HEMATOCRIT 42.7 % (42-54); LYMPHOCYTES % (AUTO) 35.2 % (21.0-51.0); MEAN CORPUSCULAR HEMOGLOBIN 30.6 pg (27.0-33.0); MEAN CORPUSCULAR HGB CONC 34.7 g/dL (32.0-36.0); MEAN CORPUSCULAR VOLUME 88.4 fL (79-99); MONOCYTES % (AUTO) 6.5 % (3.0-13.0); NEUTROPHILS % (AUTO) 54.5 % (40.0-77.0); PLATELET COUNT (AUTO) 237 K/uL (130-400); RED BLOOD CELL COUNT(AUTO) 4.83 MIL/uL (4.50-6.20); RED CELL DISTRIBUTION WIDTH 13.6 % (11.0-15.5); WHITE BLOOD COUNT (AUTO) 6.8 K/uL (4.8-10.8)
[2022-11-11 18:27] LABS: ALBUMIN 3.7 g/dL (3.5-5.0); CREATININE 1.5 mg/dL (0.5-1.5); POTASSIUM 3.7 mmol/L (3.5-5.1); TOTAL PROTEIN, SERUM 8.5 g/dL (6.0-8.3)
[2022-11-11] MEDS ORDERED: INSULIN HUMULIN R 100 UNIT/ML 3ML IV ONE (19:00)
[2022-11-11] MEDS ORDERED: 0.9%NACL 1000ML 1,000 ML IV ONE (19:00)
[2022-11-11 19:16] LABS: ERYTHROCYTE SEDIMENTATION RATE 26 MM/HR (0-20)
[2022-11-11] MEDS ORDERED: CLINDAMYCIN IVPB 600MG/50ML 50 ML IV SCH (19:30)
[2022-11-11] MEDS ORDERED: VANCOMYCIN KIT 1 GM/250 ML IV.KIT IV ONE (20:00)
[2022-11-11] MEDS ORDERED: RENAL DOSE IV PRN (22:00)
[2022-11-11] MEDS: 0.9%NACL 1000ML 1,000 ML IV SCH (22:00)
[2022-11-11] MEDS ORDERED: ONDANSETRON 4MG INJ IVP PRN (22:00)
[2022-11-11] MEDS: CLINDAMYCIN IVPB 600MG/50ML 50 ML IV SCH (22:00)
[2022-11-11] MEDS ORDERED: TEMAZEPAM 15 MG CAPSULE PO PRN (22:00)
[2022-11-11] MEDS ORDERED: ACETAMINOPHEN 325 MG TAB PO PRN (22:00)
[2022-11-11] MEDS ORDERED: ALBUTEROL INHALER 90MCG/INH IH PRN (22:00)
[2022-11-11] MEDS ORDERED: VANCOMYCIN PROTOCOL PER PHARMACY IV SCH (22:00)
[2022-11-11] MEDS ORDERED: HYDRALAZINE 20MG/ML VIAL IV PRN (22:00)
[2022-11-11] MEDS ORDERED: LABETALOL 20MG SYG IV PRN (22:00)
[2022-11-11] MEDS ORDERED: CLONIDINE HCL 0.1 MG TABLET PO PRN (22:00)
[2022-11-11] MEDS ORDERED: HYDROCODONE/ACETAMINOPHEN 5/325 MG TAB PO PRN (22:00)
[2022-11-12] MEDS: CLINDAMYCIN IVPB 600MG/50ML 50 ML IV SCH (06:00)
[2022-11-12] MEDS ORDERED: ALBUTEROL INHALER 90MCG/INH IH PRN (07:00)
[2022-11-12 07:50] LABS: MEAN CORPUSCULAR HEMOGLOBIN 30.8 pg (27.0-33.0); MEAN CORPUSCULAR HGB CONC 34.1 g/dL (32.0-36.0); MEAN CORPUSCULAR VOLUME 90.3 fL (79-99); RED BLOOD CELL COUNT(AUTO) 4.54 MIL/uL (4.50-6.20); RED CELL DISTRIBUTION WIDTH 13.6 % (11.0-15.5); WHITE BLOOD COUNT (AUTO) 5.7 K/uL (4.8-10.8)
[2022-11-12 08:04] LABS: CREATININE 1.1 mg/dL (0.5-1.5); PHOSPHORUS 2.7 mg/dL (2.5-4.9); POTASSIUM 3.7 mmol/L (3.5-5.1)
[2022-11-12] MEDS: INSULIN HUMULIN R 100 UNIT/ML 3ML SQ SCH ×4 (08:36→21:17)
[2022-11-12] MEDS: 0.9% NACL 250ML 250 ML IV SCH ×2 (08:36→21:00)
[2022-11-12] MEDS: VANCOMYCIN 2GM/500 ML BAG 500 ML IV SCH (08:36)
[2022-11-12] MEDS: ENOXAPARIN SODIUM 30 MG/0.3 ML SQ SCH (08:40)
[2022-11-12] MEDS: CARVEDILOL 25 MG TABLET PO SCH ×2 (08:40→21:16)
[2022-11-12] MEDS: FAMOTIDINE 20MG TAB PO SCH ×2 (08:40→21:15)
[2022-11-12] MEDS: PIOGLITAZONE 45MG TAB PO SCH (08:41)
[2022-11-12] MEDS: LOSARTAN 100 MG TABLET PO SCH (08:41)
[2022-11-12] MEDS: SYMBICORT 160-4.5 MCG INHALER IH SCH ×2 (09:00→21:00)
[2022-11-12] MEDS: 0.9%NACL 1000ML 1,000 ML IV SCH (19:36)
[2022-11-12] MEDS: ATORVASTATIN 40 MG TABLET PO SCH (21:16)
[2022-11-12] MEDS: ALPRAZOLAM 0.25 MG TABLET PO SCH (21:16)
[2022-11-12] MEDS: INSULIN GLARGINE 100 UNITS/ML 10 ML VIAL SQ SCH (21:17)
[2022-11-12 22:40] VITALS: O2SAT 100
[2022-11-12 22:45] VITALS: BP 126/68; PULSE 80; RESP 19
[2022-11-13 04:00] VITALS: BP 106/61; PULSE 77; RESP 19
[2022-11-13 05:19] LABS: BASOPHILS % (AUTO) 0.6 % (0.0-5.0); HEMATOCRIT 37.8 % (42-54); LYMPHOCYTES % (AUTO) 22.5 % (21.0-51.0); MEAN CORPUSCULAR HEMOGLOBIN 30.8 pg (27.0-33.0); MEAN CORPUSCULAR HGB CONC 33.9 g/dL (32.0-36.0); MEAN CORPUSCULAR VOLUME 90.9 fL (79-99); MONOCYTES % (AUTO) 8.6 % (3.0-13.0); PLATELET COUNT (AUTO) 159 K/uL (130-400); RED BLOOD CELL COUNT(AUTO) 4.16 MIL/uL (4.50-6.20); RED CELL DISTRIBUTION WIDTH 13.7 % (11.0-15.5); WHITE BLOOD COUNT (AUTO) 6.4 K/uL (4.8-10.8)
[2022-11-13 05:41] LABS: ALBUMIN 2.7 g/dL (3.5-5.0); CREATININE 1.1 mg/dL (0.5-1.5); MAGNESIUM 1.8 mg/dL (1.80-2.40); POTASSIUM 3.6 mmol/L (3.5-5.1); TOTAL PROTEIN, SERUM 6.3 g/dL (6.0-8.3)
[2022-11-13] MEDS: INSULIN HUMULIN R 100 UNIT/ML 3ML SQ SCH ×4 (06:23→20:39)
[2022-11-13 08:00] VITALS: BP 118/63; PULSE 75; RESP 18; O2SAT 100
[2022-11-13] MEDS ORDERED: KCL 20 MEQ ERTAB PO ONE (08:30)
[2022-11-13] MEDS: SYMBICORT 160-4.5 MCG INHALER IH SCH ×2 (09:00→20:37)
[2022-11-13] MEDS: VANCOMYCIN 2GM/500 ML BAG 500 ML IV SCH (09:04)
[2022-11-13] MEDS: LOSARTAN 100 MG TABLET PO SCH (09:05)
[2022-11-13] MEDS: PIOGLITAZONE 45MG TAB PO SCH (09:05)
[2022-11-13] MEDS: CARVEDILOL 25 MG TABLET PO SCH ×2 (09:06→20:37)
[2022-11-13] MEDS: FAMOTIDINE 20MG TAB PO SCH ×2 (09:06→20:37)
[2022-11-13] MEDS: ENOXAPARIN SODIUM 30 MG/0.3 ML SQ SCH (09:07)
[2022-11-13 11:30] VITALS: BP 89/50; PULSE 71; RESP 18
[2022-11-13] MEDS ORDERED: COMPOUND IV MISC 1 EACH IVSOLN MISC PRN (12:00)
[2022-11-13] MEDS: MEROPENEM 1 GM in 0.9%NACL 100ML 100 ML IVPB SCH ×2 (12:14→18:26)
[2022-11-13] MEDS: 0.9%NACL 1000ML 1,000 ML IV SCH (12:50)
[2022-11-13 16:00] VITALS: BP 126/68; PULSE 77; RESP 20
[2022-11-13 20:00] VITALS: BP 141/75; PULSE 79; RESP 19; O2SAT 100
[2022-11-13] MEDS: ALPRAZOLAM 0.25 MG TABLET PO SCH (20:37)
[2022-11-13] MEDS: ATORVASTATIN 40 MG TABLET PO SCH (20:37)
[2022-11-13] MEDS: INSULIN GLARGINE 100 UNITS/ML 10 ML VIAL SQ SCH (20:51)
[2022-11-13] MEDS: 0.9% NACL 250ML 250 ML IV SCH (21:00)
[2022-11-14] VITALS (9 sets, daily range): BP systolic 100–140; BP diastolic 50–76; PULSE 70–82; RESP 18–20; O2SAT 97–100
[2022-11-14] MEDS: MEROPENEM 1 GM in 0.9%NACL 100ML 100 ML IVPB SCH ×3 (02:44→17:12)
[2022-11-14] MEDS: INSULIN HUMULIN R 100 UNIT/ML 3ML SQ SCH ×4 (06:34→23:23)
[2022-11-14 07:06] LABS: BASOPHILS % (AUTO) 0.6 % (0.0-5.0); EOSINOPHILS % (AUTO) 1.5 % (0.0-8.0); HEMATOCRIT 36.6 % (42-54); LYMPHOCYTES % (AUTO) 23.8 % (21.0-51.0); MEAN CORPUSCULAR HEMOGLOBIN 31.2 pg (27.0-33.0); MEAN CORPUSCULAR VOLUME 89.3 fL (79-99); MONOCYTES % (AUTO) 9.1 % (3.0-13.0); NEUTROPHILS % (AUTO) 64.6 % (40.0-77.0); PLATELET COUNT (AUTO) 164 K/uL (130-400); RED CELL DISTRIBUTION WIDTH 13.8 % (11.0-15.5); WHITE BLOOD COUNT (AUTO) 7.2 K/uL (4.8-10.8)
[2022-11-14 07:20] LABS: ALBUMIN 2.4 g/dL (3.5-5.0); CREATININE 1.2 mg/dL (0.5-1.5); MAGNESIUM 1.7 mg/dL (1.80-2.40); POTASSIUM 3.5 mmol/L (3.5-5.1); TOTAL PROTEIN, SERUM 5.9 g/dL (6.0-8.3)
[2022-11-14] MEDS: LOSARTAN 100 MG TABLET PO SCH (08:31)
[2022-11-14] MEDS: FAMOTIDINE 20MG TAB PO SCH ×2 (08:31→23:20)
[2022-11-14] MEDS: SYMBICORT 160-4.5 MCG INHALER IH SCH ×2 (08:31→21:00)
[2022-11-14] MEDS: CARVEDILOL 25 MG TABLET PO SCH ×2 (08:31→23:22)
[2022-11-14] MEDS: ENOXAPARIN SODIUM 30 MG/0.3 ML SQ SCH (08:34)
[2022-11-14] MEDS: 0.9% NACL 250ML 250 ML IV SCH ×2 (09:00→21:00)
[2022-11-14] MEDS ORDERED: KCL 20 MEQ ERTAB PO ONE ×2 (09:00→10:30)
[2022-11-14] MEDS: VANCOMYCIN 1.25 GM/250 ML BAG 250 ML IV SCH ×2 (09:39→23:20)
[2022-11-14] MEDS: 0.9%NACL 1000ML 1,000 ML IV SCH (10:00)
[2022-11-14] MEDS ORDERED: MAGNESIUM 2GM PREMIX 50ML 50 ML IV PRN (10:30)
[2022-11-14] MEDS: ALPRAZOLAM 0.25 MG TABLET PO SCH (23:20)
[2022-11-14] MEDS: ATORVASTATIN 40 MG TABLET PO SCH (23:21)
[2022-11-14] MEDS: INSULIN GLARGINE 100 UNITS/ML 10 ML VIAL SQ SCH (23:25)
[2022-11-15] MEDS: MEROPENEM 1 GM in 0.9%NACL 100ML 100 ML IVPB SCH ×3 (02:05→18:13)
[2022-11-15 03:52] VITALS: BP 105/50; PULSE 71; RESP 18
[2022-11-15] MEDS: 0.9%NACL 1000ML 1,000 ML IV SCH (05:38)
[2022-11-15 05:50] LABS: BASOPHILS % (AUTO) 0.6 % (0.0-5.0); EOSINOPHILS % (AUTO) 3.5 % (0.0-8.0); HEMATOCRIT 38.4 % (42-54); LYMPHOCYTES % (AUTO) 26.3 % (21.0-51.0); MEAN CORPUSCULAR HEMOGLOBIN 30.3 pg (27.0-33.0); MEAN CORPUSCULAR HGB CONC 33.9 g/dL (32.0-36.0); MEAN CORPUSCULAR VOLUME 89.5 fL (79-99); NEUTROPHILS % (AUTO) 59.3 % (40.0-77.0); PLATELET COUNT (AUTO) 152 K/uL (130-400); RED BLOOD CELL COUNT(AUTO) 4.29 MIL/uL (4.50-6.20); WHITE BLOOD COUNT (AUTO) 6.5 K/uL (4.8-10.8)
[2022-11-15 06:13] LABS: ALBUMIN 2.5 g/dL (3.5-5.0); CREATININE 1.2 mg/dL (0.5-1.5); MAGNESIUM 1.6 mg/dL (1.80-2.40); POTASSIUM 3.5 mmol/L (3.5-5.1); TOTAL PROTEIN, SERUM 6.3 g/dL (6.0-8.3)
[2022-11-15] MEDS: INSULIN HUMULIN R 100 UNIT/ML 3ML SQ SCH ×4 (06:23→21:00)
[2022-11-15 08:00] VITALS: BP 126/77; PULSE 75; RESP 18
[2022-11-15] MEDS: ENOXAPARIN SODIUM 30 MG/0.3 ML SQ SCH (09:00)
[2022-11-15] MEDS: SYMBICORT 160-4.5 MCG INHALER IH SCH ×2 (09:00→21:00)
[2022-11-15] MEDS: 0.9% NACL 250ML 250 ML IV SCH ×2 (09:00→21:00)
[2022-11-15] MEDS: LOSARTAN 100 MG TABLET PO SCH (10:09)
[2022-11-15] MEDS: VANCOMYCIN 1.25 GM/250 ML BAG 250 ML IV SCH (10:09)
[2022-11-15] MEDS: FAMOTIDINE 20MG TAB PO SCH ×2 (10:10→21:00)
[2022-11-15] MEDS: CARVEDILOL 25 MG TABLET PO SCH ×2 (10:10→21:00)
[2022-11-15 11:50] VITALS: BP 118/73; PULSE 70; RESP 18
[2022-11-15 12:49] LABS: INR 0.93 (0.85-1.15); PROTHROMBIN TIME 10.4 SEC (9.6-11.6)
[2022-11-15 12:51] LABS: PARTIAL THROMBOPLASTIN TIME 33.3 SEC (26.3-35.5)
[2022-11-15 16:00] VITALS: BP 119/61; PULSE 71; RESP 20
[2022-11-15] MEDS ORDERED: FAMO20TA8 PO (16:25)
[2022-11-15 19:14] VITALS: BP 128/55; PULSE 71; RESP 20; O2SAT 98
[2022-11-15 20:10] VITALS: O2SAT 98
[2022-11-15] MEDS: ATORVASTATIN 40 MG TABLET PO SCH (21:00)
[2022-11-15] MEDS: INSULIN GLARGINE 100 UNITS/ML 10 ML VIAL SQ SCH (21:00)
[2022-11-15] MEDS: VANCOMYCIN 1.5 GM/250 ML BAG 250 ML IV SCH (21:00)
[2022-11-15] MEDS: ALPRAZOLAM 0.25 MG TABLET PO SCH (21:00)
[2022-11-16] MEDS: MEROPENEM 1 GM in 0.9%NACL 100ML 100 ML IVPB SCH ×2 (02:00→11:46)
[2022-11-16] MEDS: INSULIN HUMULIN R 100 UNIT/ML 3ML SQ SCH ×3 (07:30→16:03)
[2022-11-16 08:00] VITALS: BP 136/71; PULSE 76; RESP 20
[2022-11-16] MEDS: SYMBICORT 160-4.5 MCG INHALER IH SCH (09:00)
[2022-11-16] MEDS: LOSARTAN 100 MG TABLET PO SCH (09:40)
[2022-11-16] MEDS: FAMOTIDINE 20MG TAB PO SCH (09:40)
[2022-11-16] MEDS: VANCOMYCIN 1.5 GM/250 ML BAG 250 ML IV SCH (09:40)
[2022-11-16] MEDS: CARVEDILOL 25 MG TABLET PO SCH (09:40)
[2022-11-16] MEDS: ENOXAPARIN SODIUM 30 MG/0.3 ML SQ SCH (09:41)
[2022-11-16 12:00] VITALS: BP 113/87; PULSE 76; RESP 20
[2022-11-16 15:05] LABS: INR 0.93 (0.85-1.15); PROTHROMBIN TIME 10.7 SEC (9.6-11.6)
[2022-11-16 15:07] LABS: PARTIAL THROMBOPLASTIN TIME 34.2 SEC (26.3-35.5)
[2022-11-16 16:00] VITALS: BP 152/69; PULSE 75; RESP 18
[2022-11-16] MEDS ORDERED: HONEY 1 APPL/ML TUBE TP SCH (19:00)
== END 2022-11-16 20:00 | disposition home health service (06) | DRG 349 ==
LOC: EDH 14:51 → EDHIP 14:52 → 3BH 11-12 22:10
PROVIDERS: ADMIT Internal Medicine Critical Care Medicine; ATTEND Internal Medicine Critical Care Medicine
PROC: 0JBR0ZZ Excision of Left Foot Subcutaneous Tissue and Fascia, Open Approach (ICD-10-PCS; principal; 2022-11-12)
PROC: 02HV33Z Insertion of Infusion Device into Superior Vena Cava, Percutaneous Approach (ICD-10-PCS; 2022-11-16)
DX: T87.44 Infection of amputation stump, left lower extremity (principal); N17.9 Acute kidney failure, unspecified; E11.621 Type 2 diabetes mellitus with foot ulcer; M86.8X7 Other osteomyelitis, ankle and foot; I11.0 Hypertensive heart disease with heart failure; L02.612 Cutaneous abscess of left foot; L97.529 Non-pressure chronic ulcer of other part of left foot with unspecified severity; B95.2 Enterococcus as the cause of diseases classified elsewhere; E11.65 Type 2 diabetes mellitus with hyperglycemia; E11.69 Type 2 diabetes mellitus with other specified complication; E66.01 Morbid (severe) obesity due to excess calories; F32.A Depression, unspecified; F41.9 Anxiety disorder, unspecified; J44.9 Chronic obstructive pulmonary disease, unspecified; Y83.8 Other surgical procedures as the cause of abnormal reaction of the patient, or of later complication, without mention of misadventure at the time of the procedure; E78.00 Pure hypercholesterolemia, unspecified; I25.2 Old myocardial infarction; Z83.3 Family history of diabetes mellitus; Z89.432 Acquired absence of left foot; Z68.39 Body mass index [BMI] 39.0-39.9, adult
CPT/HCPCS: 36415; 36569; 71045; 73630; 73718; 80048; 80053; 80202; 82010; 82948; 83605; 83735; 84100; 84145; 85025; 85027; 85610; 85651; 85730; 87070; 87076; 87077; 87186; 93925; C1894; G0378; J1650; J1815; J2185; J3370; J3475; J3490; J7030; J7050; 3370

== ENCOUNTER 2023-06-30 14:35 | Emergency (ER) | payer BC, MEDICAID ==
[~2023-06-30] VITALS: Ht 172.7 cm; Wt 106.6 kg
[~2023-06-30 14:35] MED LIST changes: +FAMO20TA8 PO
[2023-06-30] MEDS ORDERED: CEPH500T PO (18:56)
[2023-06-30] MEDS ORDERED: IBUP-2070 PO (18:56)
[2023-06-30 19:13] VITALS: BP 148/75; PULSE 79; RESP 19; O2SAT 100
[2023-06-30] MEDS: TETANUS/DIPHTHERIA TOXOID [ADULT] 0.5 ML VIAL IM ONE (19:28)
[2023-06-30] MEDS: IBUPROFEN 600 MG TABLET PO ONE (19:29)
[2023-06-30] MEDS: CEPHALEXIN 500 MG CAPSULE PO ONE (19:29)
== END 2023-06-30 19:35 | disposition home or self-care (01) ==
LOC: EDH 14:35
DX: S61.431A Puncture wound without foreign body of right hand, initial encounter (principal); E11.9 Type 2 diabetes mellitus without complications; E66.9 Obesity, unspecified; E78.00 Pure hypercholesterolemia, unspecified; I11.0 Hypertensive heart disease with heart failure; I50.9 Heart failure, unspecified; Z79.84 Long term (current) use of oral hypoglycemic drugs; Z79.899 Other long term (current) drug therapy; X58.XXXA Exposure to other specified factors, initial encounter; Y93.89 Activity, other specified; Y92.89 Other specified places as the place of occurrence of the external cause; Y99.8 Other external cause status
CPT/HCPCS: 73120; 90471; 90714